=== PATIENT | female | born 1950 | race Caucasian/White ===

== ENCOUNTER 2016-04-15 16:39 | Inpatient (IN) | payer OTHER ==
[~2016-04-15] VITALS: Ht 167.6 cm; Wt 63.2 kg
[2016-04-15] VITALS (15 sets, daily range): BP systolic 104–114; BP diastolic 57–69; PULSE 70–78; RESP 14–17; Ht 167.6 cm; Wt 63.2 kg
[~2016-04-15 16:39] MED LIST: ETOMIDATE 20 MG INJ ONE; SUCCINYLCHOLINE CHLORIDE 100 MG/5 ML SYG IV ONE
[2016-04-15] MEDS ORDERED: CEFEPIME 2GM/50 ML (PMX) 50 ML IVPB STA (16:42)
[2016-04-15] MEDS ORDERED: SOD CHLORIDE 0.9% 1,000 ML IV STA ×2 (16:43)
[2016-04-15] MEDS ORDERED: ETOMIDATE 20 MG INJ IV STA (16:56)
[2016-04-15] MEDS ORDERED: PROPOFOL 100 ML IV STA (16:56)
[2016-04-15] MEDS ORDERED: SUCCINYLCHOLINE CHLORIDE 100 MG/5 ML SYG IV STA (16:56)
[2016-04-15] MEDS ORDERED: PROPOFOL 100 ML ONE (16:57)
[2016-04-15] MEDS ORDERED: VANCOMYCIN 1 GM (PMX) 250 ML IVPB ONE (17:00)
[2016-04-15] MEDS ORDERED: LORAZEPAM 2 MG INJ IM ONE (17:00)
[2016-04-15] MEDS ORDERED: HALOPERIDOL 5 MG INJ IM ONE (17:00)
[2016-04-15] MEDS ORDERED: HYDROmorphONE 1 MG/ML SYG IV ONE (17:00)
[2016-04-15 17:06] LABS: ADD SCAN DIFF NO
[2016-04-15 17:09] LABS: HEMATOCRIT 28.4 % (37.0-47.0); HEMOGLOBIN 9.1 g/dl (12.0-16.0); MEAN CORPUSCULAR HEMOGLOBIN 24.2 pg (29.0-33.0); MEAN CORPUSCULAR VOLUME 75.5 fl (82.0-101.0); MEAN PLATELET VOLUME 9.6 fl (7.4-10.4); PLATELET COUNT 216 10^3/UL (140-415); RED BLOOD COUNT 3.76 10^6/ul (4.20-5.40); RED CELL DISTRIBUTION WIDTH 16.3 % (11.5-14.5); WHITE BLOOD COUNT 3.1 10^3/ul (4.8-10.8)
[2016-04-15 17:18] LABS: ALBUMIN 3.7 g/dl (3.3-4.9); CHLORIDE 102 mmol/L (97-110); INR 1.09; POTASSIUM 4.9 mmol/L (3.5-5.1); PROTIME 14.1 Sec (12.2-14.2); PT RATIO 1.1; SODIUM 141 mmol/L (135-144)
[2016-04-15 17:19] LABS: PARTIAL THROMBOPLASTIN TIME 27.6 Sec (25.0-35.0)
[2016-04-15 17:20] LABS: ANION GAP 22 (8-16); ASPARTATE AMINO TRANSFERASE 34 IU/L (15-46); CARBON DIOXIDE 22 mmol/L (21-31); CREATININE 1.58 mg/dl (0.44-1.00)
[2016-04-15 17:21] LABS: ALANINE AMINOTRANSFERASE 35 IU/L (13-69); ALBUMIN/GLOBULIN RATIO 1.42; ALKALINE PHOSPHATASE 87 IU/L (42-121); BLOOD UREA NITROGEN 26 mg/dl (7-20); CALCIUM 9.7 mg/dl (8.4-10.2); GLUCOSE 230 mg/dl (70-220); TOTAL PROTEIN 6.3 g/dl (6.1-8.1)
[2016-04-15 17:22] LABS: ACETAMINOPHEN < 10.0 ug/ml (10.0-30.0); ETHANOL < 10.0 mg/dl; SALICYLATE < 1.0 mg/dl (5.0-30.0)
[2016-04-15] MEDS ORDERED: ACETAMINOPHEN 650 MG SUPP PR ONE (17:30)
--- NOTE | 2016-04-15 17:32 | RADRPT ---
PROCEDURE: Chest x-ray CLINICAL INDICATION: Shortness of breath TECHNIQUE: Chest single view COMPARISON: None FINDINGS: Endotracheal tube terminates 3 cm above the alayna. Heart is normal in size. Pulmonary vessels are normal in caliber. There is mild perihilar and lower lobe atelectasis. No confluent pneumonia see n. Costophrenic angles are sharp. IMPRESSION: 1. Endotracheal tube terminates 3 cm above the alayna. 2. Low lung volumes with perihilar and lower lobe atelectasis RPTAT: HH .Ede Michelle MD, Date Time Electronically viewed and signed by .Ede Michelle MD, on 04/15/2016 17:32 .W/
[2016-04-15 17:34] LABS: AADO2 Arterial 419.3 mmHg (7.0-24.0); Allen Test ACCEPTAB; Arterial Base Excess -2.7 mmol/L (-3.0-3); Arterial COHb 0.3 % (0.0-3.0); Arterial Fraction of Oxyhgb 98.3 % (93.0-99.0); Arterial HCO3 21.1 mmol/L (22.0-26.0); Arterial MetHb 0.2 % (0.0-1.5); Arterial Total Hemglobin 10.9 g/dl (12.0-18.0); MODE VENT - AC
[2016-04-15 17:44] LABS: TROPONIN-I < 0.012 ng/ml (0.00-0.12)
--- NOTE | 2016-04-15 18:17 | ERA ---
ER Documentation Chief Complaint Date/Time DATE: 04/15/16 TIME: 18:10 Chief Complaint ALTERED SINCE HPI Patient is an approximately 61-year-old female who presents with altered mental status. Please note the history and physical exam is limited secondary to patient's altered mental status at this time. She was brought in by ambulance. She was found rolling in the bushes by paramedics. She is hot to the touch. I cannot obtain history otherwise. She has no identification on her. ROS All systems reviewed and are negative except as per history of present illness. Medications Home Meds Unable to Obtain Active Prescriptions or Reported Meds Allergies Allergies: Coded Allergies: No Known Allergy (Unverified , 04/15/16) PMhx/Soc Unable to obtain Medical and Surgical Hx: Unable to obtain Hx Alcohol Use: No Hx Substance Use: No Hx Tobacco Use: No Smoking Status: Never smoker FmHx Unable to obtain Physical Exam Vitals Vital Signs Date Time Temp Pulse Resp B/P Pulse Ox O2 Delivery O2 Flow Rate FiO2 04/15/16 17:00 94 22 100 100 04/15/16 16:50 Bag Valve Mask 04/15/16 16:47 99.9 99 26 92/52 97 Physical Exam Const: Altered Head: Atraumatic Eyes: Normal Conjunctiva ENT: Normal External Ears, Nose and Mouth. Neck: Full range of motion..~ No meningismus. Resp: Clear to auscultation bilaterally Cardio: Regular rate and rhythm, no murmurs Abd: Soft, non tender, non distended. Normal bowel sounds Skin: Pale Back: No midline or flank tenderness Ext: No cyanosis, or edema Neur: Awake but encephalopathic, not following commands, not speaking, rolling on the bed Result Diagram: 04/15/16 1650 04/15/16 1650 Results 24 hrs Laboratory Tests Test 04/15/16 16:50 04/15/16 16:56 Acetaminophen Level < 10.0ug/ml Activated Partial Thromboplast Time 27.6Sec Alanine Aminotransferase (ALT/SGPT) 35IU/L Albumin 3.7g/dl Albumin/Globulin Ratio 1.42 Alkaline Phosphatase 87IU/L Anion Gap 22 Aspartate Amino Transf (AST/SGOT) 34IU/L Basophils # 10^3/ul Basophils % % Blood Urea Nitrogen 26mg/dl Calcium Level 9.7mg/dl Carbon Dioxide Level 22mmol/L Chloride Level 102mmol/L Creatinine 1.58mg/dl Direct Bilirubin 0.00mg/dl Eosinophils # 10^3/ul Eosinophils % % Ethyl Alcohol Level < 10.0mg/dl Globulin 2.60g/dl Glucose Level 230mg/dl Hematocrit 28.4% Hemoglobin 9.1g/dl INR International Normalized Ratio 1.09 Indirect Bilirubin 0.0mg/dl Lactic Acid Level 2.9mmol/L Lymphocytes # 10^3/ul Lymphocytes % % Mean Corpuscular Hemoglobin 24.2pg Mean Corpuscular Hemoglobin Concent 32.0g/dl Mean Corpuscular Volume 75.5fl Mean Platelet Volume 9.6fl Monocytes # 10^3/ul Monocytes % % Neutrophils # 10^3/ul Neutrophils % % Nucleated Red Blood Cells # 10^3/ul Nucleated Red Blood Cells % /100WBC Platelet Count 29978^3/UL Potassium Level 4.9mmol/L Prothrombin Time 14.1Sec Prothrombin Time Ratio 1.1 Red Blood Count 3.7610^6/ul Red Cell Distribution Width 16.3% Salicylates Level < 1.0mg/dl Sodium Level 141mmol/L Total Bilirubin 0.0mg/dl Total Protein 6.3g/dl Troponin I < 0.012ng/ml White Blood Count 3.110^3/ul Arterial Blood HCO3 21.1mmol/L Arterial Blood Base Excess -2.7mmol/L Arterial Blood Oxygen Saturation 98.8mmHG Charles Test ACCEPTAB Arterial Blood Gas Puncture Site Right Radial Arterial Blood Carboxyhemoglobin 0.3% Arterial Blood Date Drawn 04/15/2016 5:20:54 PM Arterial Blood Methemoglobin 0.2% Arterial Blood pCO2 (Temp correct) 35.0mmhg Arterial Blood pH (Temp corrected) 7.403 Arterial Blood pO2 (Temp corrected) 256.0mmHG Blood Gas A-a O2 Differential 419.3mmHg Blood Gas Actual Respiration Rate 22 Blood Gas Inspiratory Pressure 19.0 Blood Gas Low PEEP Setting 5.0cmH2O Blood Gas Modality VENT - AC Blood Gas Notified Time 04/15/2016 5:34:05 PM Blood Gas Notified Dipti LANIER Blood Gas Respiration Rate 14.0 Blood Gas Specimen Source Blood arterial Blood Gas Temperature 38.0C Blood Gas Tidal Volume 450.0mL FiO2 100.0% Oxyhemoglobin Percent 98.3% Total Hemoglobin 10.9g/dl Current Medications Medications (Trade) Dose Ordered Sig/Yariel Route PRN Reason Start Time Stop Time Status Last Admin Dose Admin Cefepime HCl 50 ml @ 100 mls/hr ONCE STAT IVPB 04/15/16 16:42 04/15/16 17:16 DC 04/15/16 17:24 Vancomycin HCl (Vancocin) 250 ml @ 125 mls/hr ONCE ONCE IVPB 04/15/16 17:00 04/15/16 18:59 04/15/16 18:02 Haloperidol (Haldol) 5 mg ONCE ONCE IM 04/15/16 17:00 04/15/16 17:16 DC 04/15/16 16:56 Lorazepam 2 mg 2 mg ONCE ONCE IM 04/15/16 17:00 04/15/16 17:16 DC 04/15/16 16:56 Sodium Chloride 1,000 ml @ 1,000 mls/hr Q1H STAT IV 04/15/16 16:43 04/15/16 17:42 DC 04/15/16 17:25 Sodium Chloride (NS) 1,000 ml @ 1,000 mls/hr Q1H STAT IV 04/15/16 16:43 04/15/16 17:42 DC 04/15/16 17:28 Succinylcholine Chloride (Anectine Syringe) 150 mg ONCE STAT IV 04/15/16 16:56 04/15/16 16:58 DC 04/15/16 17:26 Etomidate (Amidate) 20 mg ONCE STAT IV 04/15/16 16:56 04/15/16 16:59 DC 04/15/16 17:26 Hydromorphone HCl 1 mg 1 mg ONCE ONCE IV 04/15/16 17:00 04/15/16 17:16 DC 04/15/16 17:58 Propofol 100 ml @ 1.92 mls/hr ONCE STAT IV 04/15/16 16:56 04/17/16 21:00 04/15/16 17:26 Propofol (Diprivan) 100 ml @ ud STK-MED ONCE .ROUTE 04/15/16 16:57 04/15/16 16:58 DC Acetaminophen (Tylenol Supp) 650 mg ONCE ONCE HI 04/15/16 17:30 04/15/16 17:31 DC 04/15/16 17:51 Procedures/MDM CT brain pending at this time EKG read by me: Rate/Rhythm: Regular rate and rhythm at a normal rate Intervals: Normal Impression: No evidence of ischemia or arrhythmia Endotracheal Intubation by me: Pre assessment performed. Pre-oxygenation performed with 100% oxygen RSI: Performed w/o complication or hypoxic events. Medications as ordered. Blade: MAC 3 Glidescope ET Tube: 7.0 cm Depth: 23 cm at the lip Intubation confirmed by colorimetric CO2, equal breath sounds, quiet over the stomach. Chest X-ray 1V Interpreted by me: 3 cm above the alayna ET tube. Normal soft tissue, No pneumothorax. Admit MDM: Patient's infectious symptoms have not stabilized and the patient is at risk of rapid decompensation. The patient will be admitted for careful hydration, antibiotic therapy, and infectious source control. Severe Sepsis criteria: Infectious source: Unclear source at this time End organ damage indicated by: Lactate greater than 2 Sepsis Management: Time of recognition of sepsis: 16:50 Within 3 hours of recognition: Blood cultures x 2 before broad-spectrum antibiotics: Yes 30 ml/kg NS bolus Completed Initial lactate 2.9 Repeat lactate pending Time of recognition of septic shock: No septic shock Septic Shock Assessment: Any lactic acid > 4.0 No Persistent hypotension (SBP < 90 or 40 mmHg drop, MAP < 65) despite 30 mL/kg IV fluid bolus No Volume Re-assessment for Septic Shock (post 30 ml/kg bolus): No septic shock at this time Persistent Hypotension Treatment: Comfort care No Central line Not Required Vasopressor started Not required I considered further perfusion assessment with CVP measurement, SCVO2, bedside ultrasound volume assessment, passive leg raise, trial of further fluid bolus. And proceeded with 30 ml/kg fluid bolus of NSS, broad spectrum antibiotics, and admission. I am also concerned for anticholinergic overdose as the patient is febrile, dry, altered, and has dilated pupils which would be consistent with an anticholinergic overdose. She needs to be intubated for airway protection. She will be admitted to the care of the panel team to the intensive care unit. Accepting Care Team Current data and ongoing care discussed. Admitting Physician: Dr. Hahn from the panel team as we do not know any information about this patient and do not know if she has been here before or what her insurance status refund specialist(s): None Outstanding Data: Culture results and repeat lactic acid Critical Care: Critical care time 45 minutes excluding all billable procedures Emergent fluid management while maintaining close respiratory support. Provision of immediate and broad-spectrum antibiotic therapy. Simultaneous assessment for possible sources in order to direct targeted therapy. Consideration for invasive and chemical support to prevent cardiopulmonary collapse. Departure Diagnosis: Primary Impression: Anticholinergic drug overdose Qualified Code: T44.3X4A - Anticholinergic drug overdose, undetermined intent , initial encounter Additional Impressions: Altered level of consciousness Severe sepsis Respiratory failure Qualified Code: J96.00 - Acute respiratory failure, unspecified whether with hypoxia or hypercapnia Condition: Critical JESSI MARIE MD Apr 15, 2016 18:17
[2016-04-15] MEDS: SOD CHLORIDE 0.9% 1,000 ML IV SCH ×3 (18:24→21:06)
[2016-04-15] MEDS ORDERED: DOCUSATE SODIUM 100 MG CAP PO PRN (18:30)
[2016-04-15] MEDS ORDERED: LORAZEPAM 2 MG INJ IV PRN (18:30)
[2016-04-15] MEDS ORDERED: hydrALAzine 20 MG INJ IV PRN (18:30)
[2016-04-15] MEDS ORDERED: HYDROCODONE/APAP (5/325) TAB PO PRN (18:30)
[2016-04-15] MEDS ORDERED: NA PHOSPHATE/BIPHOS 133 ML ENEMA PR PRN (18:30)
[2016-04-15] MEDS ORDERED: ACETAMINOPHEN 325 MG TAB PO PRN (18:30)
[2016-04-15] MEDS ORDERED: NACL 0.9% 3 ML SYG IV SCH (18:30)
[2016-04-15] MEDS ORDERED: NITROGLYCERIN (SL) 0.4 MG TAB SL PRN (18:30)
[2016-04-15] MEDS ORDERED: ALBUTEROL/IPRATROPIUM (NEB) 3 ML AMP HHN PRN (18:30)
[2016-04-15] MEDS ORDERED: NORepinephrine 8MG/250 ML (PMX 250 ML IV SCH (18:30)
[2016-04-15] MEDS ORDERED: VANCOMYCIN IV PER PHARMACY XX SCH (18:30)
[2016-04-15] MEDS ORDERED: ONDANSETRON 4 MG INJ IV PRN (18:30)
[2016-04-15] MEDS ORDERED: MAGNESIUM HYDROXIDE 30ML CUP PO PRN (18:30)
[2016-04-15 18:46] LABS: ADD UMIC NO; URINE BILIRUBIN (Dip) NEGATIVE (NEGATIVE); URINE BLOOD (Dip) NEGATIVE (NEGATIVE); URINE COLOR LT. YELLOW (YELLOW); URINE GLUCOSE (Dip) NEGATIVE (NEGATIVE); URINE KETONES (Dip) NEGATIVE (NEGATIVE); URINE LEUKOCYTE ESTERASE (Dip) NEGATIVE (NEGATIVE); URINE NITRITE (Dip) NEGATIVE (NEGATIVE); URINE TOTAL PROTEIN (Dip) NEGATIVE (NEGATIVE); URINE UROBILINOGEN (Dip) 0.2 E.U./dL (0.1-1.0)
[2016-04-15 18:58] LABS: CANNABINOIDS Negative (NEGATIVE)
[2016-04-15 18:59] LABS: OPIATES Positive (NEGATIVE)
--- NOTE | 2016-04-15 19:00 | RADRPT ---
PROCEDURE: CT Brain without. CLINICAL INDICATION: Possible sepsis. TECHNIQUE: A CT of the brain was performed on multidetector high-resolution CT scanner utilizing a xial sections from the skull base through the vertex without contrast. The scan was reviewed in sof t tissue brain and high frequency resolution bone algorithm windows. Images were reviewed on a high -resolution PACS workstation. One or more the following does reduction techniques were utilized: Aut omated exposure control, adjustment of the mA/ or kV according to patient's size, or use of iterativ e reconstruction technique. The exam CTDI = 39.46 mGy and the DLP = 554.95 mGy-cm. COMPARISON: None available. FINDINGS: The ventricles and sulci are mildly prominent indicative of volume loss. There is mild cerebellar vo lume loss. There is no intracranial hemorrhage, mass effect or midline shift. No abnormal intra-ax ial or extra-axial fluid collections are seen. The jacobo/white matter differentiation is preserved. There are mild scattered foci of hypoattenuation in the white matter, which are nonspecific in etiol ogy but likely reflect chronic small vessel ischemic changes. There are mild intracranial vascular calcifications consistent with atherosclerosis. The visualized paranasal sinuses shows mild mucosal thickening of right ethmoid air cells and right sphenoid sinus. The mastoid air cells are essentiall y clear. IMPRESSION: 1. No acute intracranial hemorrhage, transcortical infarction or mass effect. 2. Mild intracranial atherosclerosis and chronic small vessel ischemic changes. 3. Mild generalized cerebral volume loss. 4. Mild scattered paranasal sinus disease. RPTAT: PP .Winifred Elder MD, MD Date Time Electronically viewed and signed by .Winifred Elder MD, MD on 04/15/2016 19:00 .N/
[2016-04-15 19:30] LABS: LYMPHOCYTES # 1.6 10^3/ul (0.8-2.9); MONOCYTE # 0.2 10^3/ul (0.3-0.9); NEUTROPHIL # 1.2 10^3/ul (1.6-7.5)
[2016-04-15 19:33] LABS: BARBITURATES Negative (NEGATIVE); BENZODIAZEPINES Negative (NEGATIVE); COCAINE Positive (NEGATIVE)
--- NOTE | 2016-04-15 20:15 | HP ---
DATE OF ADMISSION: 04/15/2016 CHIEF COMPLAINT: This is a 61-year-old female brought in by ambulance with altered mental status __ __ overdose. HISTORY OF PRESENT ILLNESS: A 61-year-old female, unknown past medical history, who apparently, per ER records, had altered mental status. Apparently, she was found rolling in the bushes by paramedi cs earlier today. She was found to be hot to the touch. A full review of systems cannot be obtain ed, because the patient ____ intubated as well. She had no identification on her reported to the ER documentation, but when she came in, she was found initially with a temperature of 106.0. There wa s concern of possible anticholinergic overdose, patient had to be intubated and is now on mechanical ventilation. She had an elevated lactic acid as well of 2.9 and she had some renal insufficiency a s well. PAST MEDICAL HISTORY: As stated above. ALLERGIES: APPARENTLY, NO KNOWN DRUG ALLERGIES. HOME MEDICINES: Unknown. FAMILY HISTORY: Unknown. PAST SURGICAL HISTORY: Unknown. SOCIAL HISTORY: Unknown. PHYSICAL EXAMINATION VITAL SIGNS: Today, T-max 106.0, presently temperature is 99.9, pulse 94 to 99, respirations 20 to 26, blood pressure 92/52, saturating at 100% on mechanical ventilation. GENERAL: The patient is lying in bed, intubated and sedated. HEENT: Unable to fully assess. NECK: Supple; no thyromegaly. LUNGS: Clear to auscultation bilaterally. CARDIOVASCULAR: S1, S2 heard. No rubs or gallops. ABDOMEN: Soft, nontender, nondistended. Normal bowel sounds. No rebound or guarding. MUSCULOSKELETAL: No lower extremity edema bilaterally. SKIN: Slightly pale, but does not appear hot to the touch; normal temperature. NEUROLOGIC: Unable to fully assess because patient is intubated. LABORATORIES: WBC 3.1, hemoglobin 9.1, hematocrit 28.4, platelets 216. Sodium 141, potassium 4.9, chloride 102, CO2 22, BUN 26, creatinine 1.58, glucose 230. Lactic acid 2.9. LFTs are normal. Tro ponin is negative x1. UA shows negative nitrites, negative leukocyte esterase, positive salicylate. Serum salicylate levels are less than 1. Tylenol levels in the blood are less than 10. Blood alc ohol level is less than 10, as well, so they all appear to be normal. ABG showed pH of 7.40, pCO2 o f 35, PaO2 of 256, bicarbonate of 21.1 it looks like that was performed on oxygen supplementation. COMPUTED TOMOGRAPHY: Of head was performed that showed no acute intracranial hemorrhages, infarctio ns or mass effects. CHEST X-RAY: Performed that showed low lung volumes with perihilar lower lobe atelectasis. ASSESSMENT AND PLAN A 61-year-old female coming in with altered mental status, possible anticholinergic overdose: 1. Altered mental status; again, unknown source. Possible anticholinergic overdose. It is hard to test for that on blood test. For now, continue IV fluids and mechanical ventilation. Monitor for signs of change in mental status. Get pulmonary consult for vent and management. Check TSH, A1c an d lipid panel. Physostigmine is a consideration for anticholinergic intoxication; although, again, patient's temperature has come down to high-normal range, does not have any skin redness. So it is unclear if it would be helpful in this case giving physostigmine. In any event, we will continue to monitor her for now. Ativan p.r.n. for agitation, as well. 2. Gastrointestinal prophylaxis. We will put her on a H2 nelly. 3. Deep venous thrombosis prophylaxis. We will put her on SCDs for lactic acidosis, IV fluids and put her on broad spectrum antibiotics and follow up final culture results. UA appears to be negativ e thus far. Chest x-ray does not appear to be showing signs of any infiltrates or signs of infectio n. If patient's white blood cell count is low-normal, if this trend continues, consider using antib iotics; if worsens, consider an infectious disease consultation and deep venous thrombosis prophylax is she will be on SCDs. Dictated By: RAE RANDLE Conf#: [id number] DID#: [id number]
[2016-04-15] MEDS: FAMOTIDINE 20 MG INJ IV SCH (21:05)
[2016-04-16] VITALS (46 sets, daily range): BP systolic 109–157; BP diastolic 63–86; PULSE 61–77; RESP 13–22
[2016-04-16] MEDS: CEFEPIME 2GM/50 ML (PMX) 50 ML IVPB SCH ×3 (00:04→20:12)
[2016-04-16] MEDS: PROPOFOL 100 ML IV SCH ×6 (00:16→23:42)
[2016-04-16] MEDS: morphine 2 MG INJ IV PRN (04:51)
[2016-04-16 05:01] LABS: ADD SCAN DIFF NO
[2016-04-16 05:16] LABS: POTASSIUM 3.6 mmol/L (3.5-5.1)
[2016-04-16 05:18] LABS: CREATININE 1.07 mg/dl (0.44-1.00)
[2016-04-16 05:19] LABS: PHOSPHORUS 3.6 mg/dl (2.5-4.9)
[2016-04-16 05:20] LABS: CALCIUM 8.1 mg/dl (8.4-10.2); MAGNESIUM 1.5 mg/dl (1.7-2.5)
[2016-04-16 05:21] LABS: BASOPHILS % 0.9 % (0.0-2.0); EOSINOPHILS % 0.4 % (0.0-7.0); HEMATOCRIT 26.4 % (37.0-47.0); HEMOGLOBIN 8.1 g/dl (12.0-16.0); LYMPHOCYTES # 0.9 10^3/ul (0.8-2.9); MEAN CORPUSCULAR HGB CONC 30.7 g/dl (32.0-37.0); MEAN CORPUSCULAR VOLUME 78.1 fl (82.0-101.0); MEAN PLATELET VOLUME 9.7 fl (7.4-10.4); MONOCYTE # 0.4 10^3/ul (0.3-0.9); MONOCYTES % 8.9 % (0.0-11.0); NEUTROPHIL # 3.2 10^3/ul (1.6-7.5); NEUTROPHILS % 70.4 % (39.0-77.0); PLATELET COUNT 170 10^3/UL (140-415); RED BLOOD COUNT 3.38 10^6/ul (4.20-5.40); RED CELL DISTRIBUTION WIDTH 16.7 % (11.5-14.5); WHITE BLOOD COUNT 4.5 10^3/ul (4.8-10.8)
[2016-04-16] MEDS: SOD CHLORIDE 0.9% 1,000 ML IV SCH ×3 (06:12→23:00)
[2016-04-16] MEDS ORDERED: MAGNESIUM SULFATE 2 GM/50 ML 50 ML IVPB ONE (07:00)
[2016-04-16 07:23] LABS: CHOL/HDL RATIO 1.7 RATIO
[2016-04-16 08:05] LABS: THYROID STIMULATING HORMONE 1.77 MIU/L (0.465-4.680)
[2016-04-16] MEDS: FAMOTIDINE 20 MG INJ IV SCH ×2 (08:14→20:12)
[2016-04-16] MEDS: LORAZEPAM 2 MG INJ IV PRN (09:28)
--- NOTE | 2016-04-16 12:49 | PN ---
Date/Time of Note Date/Time of Note DATE: 04/16/16 TIME: 12:44 Assessment/Plan VTE Prophylaxis VTE Prophylaxis Intervention: SCD's Lines/Catheters [facility] Peripheral IV Urinary Cath still in place: Yes Reason Cath still needed: urinary retention Assessment/Plan Chief Complaint/Hosp Course ASSESSMENT AND PLAN: 61-year-old female coming in with altered mental status, possible anticholinergic overdose. 1. Altered mental status - again, unclear source. Possible anticholinergic overdose. It is hard to test for that on blood test. Physostigmine is a consideration for anticholinergic intoxication; although, again, patient's temperature came down to high-normal range shortly after, does not have any skin redness. - continue IV fluids and mechanical ventilation. - Monitor for signs of change in mental status. - f/u pulmonary consult for vent and management. - Ativan p.r.n. for agitation, as well. - f/u HIV, LA, CXR, ABG tests 2. Gastrointestinal prophylaxis - H2 nelly. 3. Deep venous thrombosis prophylaxis - SCDs 4. lactic acidosis - resolving. Blood cx + for gram + rods as well. UA appears to be negative thus far. Chest x-ray does not appear to be showing signs of any infiltrates or signs of infection. - continue IV fluids, broad spectrum antibiotics - follow up final culture results. - patient's white blood cell count is low-normal, if worsens, consider an infectious disease consultation Critical care time today = 40 min. Problems: Subjective 24 Hr Interval Summary Free Text/Dictation Pt still intubated, seen by pulm team. Exam/Review of Systems Vital Signs Vitals Vital Signs Date Time Temp Pulse Resp B/P Pulse Ox O2 Delivery O2 Flow Rate FiO2 04/16/16 12:00 64 04/16/16 11:15 16 100 35 04/16/16 11:00 113/64 Mechanical Ventilator 04/16/16 08:00 99.8 Intake and Output 04/15/16 04/15/16 04/16/16 14:59 22:59 06:59 Intake Total 244 ml 831 ml Output Total 400 ml 925 ml Balance -156 ml -94 ml Exam GENERAL: The patient is lying in bed, intubated and sedated. HEENT: Unable to fully assess. NECK: Supple; no thyromegaly. LUNGS: Clear to auscultation bilaterally. CARDIOVASCULAR: S1, S2 heard. No rubs or gallops. ABDOMEN: Soft, nontender, nondistended. Normal bowel sounds. No rebound or guarding. MUSCULOSKELETAL: No lower extremity edema bilaterally. SKIN: Slightly pale, but does not appear hot to the touch; normal temperature. NEUROLOGIC: Unable to fully assess because patient is intubated. Results Result Diagram: 04/16/16 0400 04/16/16 0400 Results 24 hrs Laboratory Tests Test 04/15/16 16:50 04/15/16 16:56 04/15/16 18:00 04/15/16 19:20 Acetaminophen Level < 10.0 L Activated Partial Thromboplast Time 27.6 Alanine Aminotransferase (ALT/SGPT) 35 Albumin 3.7 Albumin/Globulin Ratio 1.42 Alkaline Phosphatase 87 Anion Gap 22 H Aspartate Amino Transf (AST/SGOT) 34 Basophils # 0.0 Basophils % 1.0 Blood Urea Nitrogen 26 H Calcium Level 9.7 Carbon Dioxide Level 22 Chloride Level 102 Creatinine 1.58 H Direct Bilirubin 0.00 Eosinophils # Eosinophils % Ethyl Alcohol Level < 10.0 Free Thyroxine 1.15 Globulin 2.60 Glucose Level 230 H Hematocrit 28.4 L Hemoglobin 9.1 L INR International Normalized Ratio 1.09 Indirect Bilirubin 0.0 Lactate Dehydrogenase 672 H Lactic Acid Level 2.9 H 0.5 Lymphocytes # 1.6 Lymphocytes % 51.0 Mean Corpuscular Hemoglobin 24.2 L Mean Corpuscular Hemoglobin Concent 32.0 Mean Corpuscular Volume 75.5 L Mean Platelet Volume 9.6 Monocytes # 0.2 L Monocytes % 8.0 Neutrophils # 1.2 L Neutrophils % 38.0 L Nucleated Red Blood Cells # Nucleated Red Blood Cells % Platelet Count 216 Potassium Level 4.9 Prothrombin Time 14.1 Prothrombin Time Ratio 1.1 Reactive Lymphocytes % 2.0 Red Blood Count 3.76 L Red Cell Distribution Width 16.3 H Salicylates Level < 1.0 L Sodium Level 141 Total Bilirubin 0.0 L Total Protein 6.3 Troponin I < 0.012 White Blood Count 3.1 L Arterial Blood HCO3 21.1 L Arterial Blood Base Excess -2.7 Arterial Blood Oxygen Saturation 98.8 H Charles Test ACCEPTAB Arterial Blood Gas Puncture Site Right Radial Arterial Blood Carboxyhemoglobin 0.3 Arterial Blood Date Drawn 04/15/2016 5:20:54 PM Arterial Blood Methemoglobin 0.2 Arterial Blood pCO2 (Temp correct) 35.0 Arterial Blood pH (Temp corrected) 7.403 Arterial Blood pO2 (Temp corrected) 256.0 H Blood Gas A-a O2 Differential 419.3 H Blood Gas Actual Respiration Rate 22 Blood Gas Inspiratory Pressure 19.0 Blood Gas Low PEEP Setting 5.0 Blood Gas Modality VENT - AC Blood Gas Notified Time 04/15/2016 5:34:05 PM Blood Gas Notified Whom DAKSHA RT Blood Gas Respiration Rate 14.0 Blood Gas Specimen Source Blood arterial Blood Gas Temperature 38.0 Blood Gas Tidal Volume 450.0 FiO2 100.0 Oxyhemoglobin Percent 98.3 Total Hemoglobin 10.9 L Urine Amphetamines Screen Negative Urine Barbiturates Negative Urine Benzodiazepines Screen Negative Urine Bilirubin NEGATIVE Urine Cannabinoids Negative Urine Clarity CLEAR Urine Cocaine Screen Positive Urine Color LT. YELLOW Urine Glucose NEGATIVE Urine Hemoglobin NEGATIVE Urine Ketones NEGATIVE Urine Leukocyte Esterase NEGATIVE Urine Nitrite NEGATIVE Urine Opiates Screen Positive Urine Specific [place] 1.015 Urine Total Protein NEGATIVE Urine Urobilinogen 0.2 E.U./dL Urine pH 6.5 Test 04/15/16 21:40 04/16/16 04:00 04/16/16 10:55 Lactic Acid Level < 0.5 L 1.0 0.7 Anion Gap 14 # Basophils # 0.0 Basophils % 0.9 Blood Urea Nitrogen 19 Calcium Level 8.1 L Carbon Dioxide Level 23 Chloride Level 108 Cholesterol Level 86 L Cholesterol/HDL Ratio 1.7 Creatinine 1.07 H Eosinophils # 0.0 Eosinophils % 0.4 Glucose Level 94 # HDL Cholesterol 50 Hematocrit 26.4 L Hemoglobin 8.1 L Hemoglobin A1c 6.5 H LDL Cholesterol, Calculated 20 Lymphocytes # 0.9 Lymphocytes % 19.0 Magnesium Level 1.5 L Mean Corpuscular Hemoglobin 24.0 L Mean Corpuscular Hemoglobin Concent 30.7 L Mean Corpuscular Volume 78.1 L Mean Platelet Volume 9.7 Monocytes # 0.4 Monocytes % 8.9 Neutrophils # 3.2 Neutrophils % 70.4 Nucleated Red Blood Cells # 0.0 Nucleated Red Blood Cells % 0.0 Phosphorus Level 3.6 Platelet Count 170 # Potassium Level 3.6 Red Blood Count 3.38 L Red Cell Distribution Width 16.7 H Sodium Level 141 Thyroid Stimulating Hormone (TSH) 1.770 Triglycerides Level 80 White Blood Count 4.5 #L Medications Medications Current Medications Ondansetron HCl (Zofran Inj) 4 mg Q6H PRN IV NAUSEA AND/OR VOMITING; Start 04/15 at 18:30 Acetaminophen (Tylenol Tab) 650 mg Q6H PRN PO PAIN LEVEL 1-3 OR FEVER; Start at 18:30 Acetaminophen/ Hydrocodone Bitart ([place] (5/325)) 1 tab Q6H PRN PO MODERATE PAIN LEVEL 4-6; Start 04/15/16 at 18:30 Morphine Sulfate (morphine) 2 mg Q4H PRN IV SEVERE PAIN LEVEL 7-10 Last administered on 04/16/16 04:51; Admin Dose 2 MG; Start 04/15/16 at 18:30 Docusate Sodium (Colace) 100 mg Q12H PRN PO CONSTIPATION; Start 04/15/16 at 18: 30 Magnesium Hydroxide (Milk Of Mag) 30 ml DAILY PRN PO CONSTIPATION; Start at 18:30 Sodium Biphosphate/ Sodium Phosphate (Fleet Enema) 133 ml DAILY PRN [place] CONSTIPATION; Start 04/15/16 at 18:30 Famotidine 20 mg 20 mg Q12 IV Last administered on 04/16/16 08:14; Admin Dose 20 MG; Start 04/15/16 at 21:00 Sodium Chloride (NS) 1,000 ml @ 100 mls/hr Q10H IV Last administered on 06:12; Admin Dose 100 MLS/HR; Start 04/15/16 at 18:24 Hydralazine HCl (Apresoline) 10 mg Q6H PRN IV ELEVATED BLOOD PRESSURE; Start at 18:30 Nitroglycerin (Nitroglycerin (Sl Tab) 0.4 Mg) 1 tab Q5M PRN SL ANGINA; Start at 18:30 Lorazepam 1 mg 1 mg Q1H PRN IV CONTROL WITHDRAWAL SYMPTOMS Last administered on 04/16/16 09:28; Admin Dose 1 MG; Start 04/15/16 at 19:30 Propofol 100 ml @ 1.896 mls/ hr Q12H IV Last administered on 04/16/16 09:28; Admin Dose 18.96 MLS/HR; Start 04/16/16 at 00:30 Cefepime HCl 50 ml @ 100 mls/hr Q12 IVPB ; Start 04/16/16 at 21:00 Vancomycin HCl/ Sodium Chloride (Vancocin/NS) 150 ml @ 75 mls/hr Q12H IVPB ; Start 04/16/16 at 13:00 Miscellaneous Information (*Rx Drug Level Order Reminder*) VANCO TROUGH @ 1, 200 ON... ONCE ONCE XX ; Start 04/17/16 at 12:00; Stop 04/17/16 at 12:01 RAE LOW Apr 16, 2016 12:49
--- NOTE | 2016-04-16 12:56 | CONS ---
DATE OF ADMISSION: 04/15/2016 DATE OF CONSULTATION: 04/16/2016 TYPE OF CONSULTATION: Pulmonary PRIMARY PHYSICIAN: Glenroy Hahn MD REASON FOR CONSULTATION: Vent-dependent respiratory failure. HISTORY OF PRESENT ILLNESS: Briefly, there is no history available other than what is present in [facility] medical records. Briefly, this is a 61-year-old female with unknown past medical history who was apparently found by paramedics after being found in the bushes. When she was brought into the emerg ency room, it was noted that she had a temperature of 106 and was altered, requiring intubation for airway protection. At that point, cooling measures were instituted. Given the concern for antichol inergic toxicity, I believe Poison Control was contacted and consideration for pyridostigmine was escobar pedersen. Currently, patient is sedated on propofol drip on mechanical ventilation. PAST MEDICAL HISTORY: Unknown. ALLERGIES: NO KNOWN DRUG ALLERGIES. MEDICATIONS: Unknown. FAMILY HISTORY: Unknown. SURGICAL HISTORY: Unknown. SOCIAL HISTORY: Unknown. REVIEW OF SYSTEMS: Unable to obtain. PHYSICAL EXAMINATION: VITAL SIGNS: Currently temperature is 100.5, heart rate 80s, respirations are 20, blood pressure 10 0/50, oxygen saturation 100% on 35% FIO2. GENERAL: Intubated, sedated, on mechanical ventilation. HEENT: Normocephalic, atraumatic. NECK: Supple, no thyromegaly, no jugular venous distention. CARDIOVASCULAR: Regular rate and rhythm, S1, S2. No murmurs, rubs, or gallops. LUNGS: Clear to auscultation. ABDOMEN: Soft, nontender, no hepatosplenomegaly. EXTREMITIES: No cyanosis, clubbing or edema. LABORATORY/DIAGNOSTIC DATA: WBC is 4.5, hemoglobin is 8.1, MCV is 78, platelets are 170. ABG: pH is 7.4, pCO2 is 35, pO2 is 256. BUN is 19, creatinine is 1.07. TSH is within normal limits. LDH i s 674. Lactate is 2.9. Head CT showed no acute intracranial process. Chest x-ray showed low lung volumes, mild perihilar s ubsegmental atelectasis. IMPRESSION: 1. Altered mental status possibly due to a toxic ingestion. Of note, the only positive on toxicolo gy screen was for opiates and for cocaine. Acute cocaine toxicity can present with altered mental s tatus and hyperthermia. However, this degree of hyperthermia is disproportionate. Thereby, anticho linergic toxicity is a concern. Her clinical exam is not suggestive of neuroleptic malignant syndro me or acute serotonergic syndrome. 2. Hyperthermia secondary to toxic ingestion, less likely viral. 3. Respiratory failure, intubated for airway protection. 4. Gram-positive harrison bacteremia. Although this can be a contaminate, one must also consider possib ilities that are unlikely such as Clostridium, Corynebacterium or Listeria. 5. Azotemia, improved, likely prerenal. RECOMMENDATIONS: 1. IV fluids. 2. Repeat blood cultures. 3. Vent support. 4. Continue to follow mental status and passive cooling measures. 5. Follow up blood cultures. 6. HIV testing to be performed. 7. DVT and GI prophylaxis. Dictated By: RAIZA MANNING MD NK/NTS Conf#: [id number] DID#: [id number] CC: ; SUSAN CODY MD;*EndCC*
[2016-04-16] MEDS: VANCOMYCIN 750 MG in SOD CHLORIDE 0.9% 150 ML IVPB SCH (13:14)
[2016-04-16] MEDS ORDERED: VANCOMYCIN 750 MG in SOD CHLORIDE 0.9% 150 ML IVPB SCH (15:30)
[2016-04-17] VITALS (34 sets, daily range): BP systolic 110–167; BP diastolic 73–128; PULSE 55–71; RESP 11–21
[2016-04-17] MEDS: LORAZEPAM 2 MG INJ IV PRN ×3 (00:36→21:24)
[2016-04-17] MEDS: VANCOMYCIN 750 MG in SOD CHLORIDE 0.9% 150 ML IVPB SCH ×2 (01:02→13:19)
[2016-04-17 04:59] LABS: ADD SCAN DIFF NO
[2016-04-17] MEDS: PROPOFOL 100 ML IV SCH ×4 (05:01→20:18)
[2016-04-17 05:05] LABS: AADO2 Arterial 72.8 mmHg (7.0-24.0); Allen Test ACCEPTAB; Arterial Base Excess -4.5 mmol/L (-3.0-3); Arterial COHb 0.3 % (0.0-3.0); Arterial Fraction of Oxyhgb 97.4 % (93.0-99.0); Arterial HCO3 20.7 mmol/L (22.0-26.0); Arterial MetHb 0.1 % (0.0-1.5); Arterial Total Hemglobin 9.7 g/dl (12.0-18.0); MODE VENT-AC
[2016-04-17 05:17] LABS: BASOPHIL # 0.1 10^3/ul (0.0-0.1); BASOPHILS % 1.2 % (0.0-2.0); EOSINOPHILS # 0.1 10^3/ul (0.0-0.5); EOSINOPHILS % 2.2 % (0.0-7.0); HEMATOCRIT 28.2 % (37.0-47.0); HEMOGLOBIN 8.7 g/dl (12.0-16.0); LYMPHOCYTES # 1.1 10^3/ul (0.8-2.9); LYMPHOCYTES % 21.6 % (15.0-51.0); MEAN CORPUSCULAR HEMOGLOBIN 24.1 pg (29.0-33.0); MEAN CORPUSCULAR HGB CONC 30.9 g/dl (32.0-37.0); MEAN CORPUSCULAR VOLUME 78.1 fl (82.0-101.0); MEAN PLATELET VOLUME 9.7 fl (7.4-10.4); MONOCYTE # 0.6 10^3/ul (0.3-0.9); NEUTROPHIL # 3.2 10^3/ul (1.6-7.5); NEUTROPHILS % 63.4 % (39.0-77.0); PLATELET COUNT 189 10^3/UL (140-415); RED BLOOD COUNT 3.61 10^6/ul (4.20-5.40); RED CELL DISTRIBUTION WIDTH 16.9 % (11.5-14.5)
[2016-04-17 05:27] LABS: POTASSIUM 3.3 mmol/L (3.5-5.1)
[2016-04-17 05:29] LABS: CREATININE 0.75 mg/dl (0.44-1.00)
[2016-04-17 05:30] LABS: CALCIUM 8.5 mg/dl (8.4-10.2)
--- NOTE | 2016-04-17 07:15 | PN ---
Date/Time of Note Date/Time of Note DATE: 04/17/16 TIME: 07:06 Assessment/Plan VTE Prophylaxis VTE Prophylaxis Intervention: SCD's Lines/Catheters IV Catheter Type (from Nrs): Saline Lock Urinary Cath still in place: Yes Reason Cath still needed: terminal illness/intractable pain Assessment/Plan Assessment/Plan 1. Altered mental status - pt came with temp of 106. Possible anticholinergic overdose. Utox was also positive for cocaine and opiates. now normothermic - continue IV fluids and mechanical ventilation. - Frequent Neuro checks - Cont cooling measures 2. Vent dependent Respiratory Failure: 2/2 altered mentation - Pulmonary managing 3. lactic acidosis - resolving. - Blood cx + for gram + rods as well. UA appears to be negative thus far. Chest x-ray does not appear to be showing signs of any infiltrates or signs of infection. - Cont abx and IVF 4. Normocytic Anemia: r/o Iron deficiency and GI Bleed - Order FOBT and Iron profile Gastrointestinal prophylaxis - H2 nelly. Deep venous thrombosis prophylaxis - SCDs Subjective 24 Hr Interval Summary Free Text/Dictation intubated and sedated. propofol was increased for agitation Exam/Review of Systems Vital Signs Vitals Vital Signs Date Time Temp Pulse Resp B/P Pulse Ox O2 Delivery O2 Flow Rate FiO2 04/17/16 07:00 61 21 110/73 99 Mechanical Ventilator 04/17/16 05:12 35 04/17/16 04:00 98.1 Intake and Output 04/16/16 04/16/16 04/17/16 15:00 23:00 07:00 Intake Total 1151.68 ml 901.68 ml 737.04 ml Output Total 880 ml 805 ml 600 ml Balance 271.68 ml 96.68 ml 137.04 ml Exam Constitutional: other (intubated) Head: atraumatic, normocephalic Eyes: PERRL Respiratory: clear to auscultation, normal air movement Cardiovascular: nl pulses, regular rate and rhythm Gastrointestinal: non-tender, soft Extremities: normal pulses Results Result Diagram: 04/17/16 0416 04/17/16 0416 Results 24 hrs Laboratory Tests Test 04/16/16 10:55 04/16/16 13:20 04/16/16 17:40 04/16/16 22:57 Lactic Acid Level 0.7 0.8 < 0.5 L < 0.5 L Creatine Kinase 392 H Test 04/17/16 04:16 04/17/16 05:00 Anion Gap 14 Basophils # 0.1 Basophils % 1.2 Blood Urea Nitrogen 10 # Calcium Level 8.5 Carbon Dioxide Level 21 Chloride Level 108 Creatinine 0.75 Eosinophils # 0.1 Eosinophils % 2.2 Glucose Level 91 Hematocrit 28.2 L Hemoglobin 8.7 L Lactic Acid Level 0.7 Lymphocytes # 1.1 Lymphocytes % 21.6 Mean Corpuscular Hemoglobin 24.1 L Mean Corpuscular Hemoglobin Concent 30.9 L Mean Corpuscular Volume 78.1 L Mean Platelet Volume 9.7 Monocytes # 0.6 Monocytes % 11.0 Neutrophils # 3.2 Neutrophils % 63.4 Nucleated Red Blood Cells # 0.0 Nucleated Red Blood Cells % 0.0 Platelet Count 189 Potassium Level 3.3 L Red Blood Count 3.61 L Red Cell Distribution Width 16.9 H Sodium Level 140 White Blood Count 5.0 Arterial Blood HCO3 20.7 L Arterial Blood Base Excess -4.5 L Arterial Blood Oxygen Saturation 97.8 Charles Test ACCEPTAB Arterial Blood Gas Puncture Site Right Radial Arterial Blood Carboxyhemoglobin 0.3 Arterial Blood Date Drawn 04/17/2016 4:35:37 AM Arterial Blood Methemoglobin 0.1 Arterial Blood pCO2 (Temp correct) 38.2 Arterial Blood pH (Temp corrected) 7.351 Arterial Blood pO2 (Temp corrected) 132.3 H Blood Gas A-a O2 Differential 72.8 H Blood Gas Actual Respiration Rate 15 Blood Gas Inspiratory Pressure 19.0 Blood Gas Low PEEP Setting 5.0 Blood Gas Modality VENT-AC Blood Gas Notified Time 04/17/2016 5:05:38 AM Blood Gas Notified Whom JMD Blood Gas Respiration Rate 14.0 Blood Gas Specimen Source Blood arterial Blood Gas Temperature 37.0 Blood Gas Tidal Volume 450.0 FiO2 35.0 Oxyhemoglobin Percent 97.4 Total Hemoglobin 9.7 L Medications Medications Current Medications Ondansetron HCl (Zofran Inj) 4 mg Q6H PRN IV NAUSEA AND/OR VOMITING; Start 04/15 at 18:30 Acetaminophen (Tylenol Tab) 650 mg Q6H PRN PO PAIN LEVEL 1-3 OR FEVER; Start at 18:30 Acetaminophen/ Hydrocodone Bitart ([place] (5/325)) 1 tab Q6H PRN PO MODERATE PAIN LEVEL 4-6; Start 04/15/16 at 18:30 Morphine Sulfate (morphine) 2 mg Q4H PRN IV SEVERE PAIN LEVEL 7-10 Last administered on 04/16/16 04:51; Admin Dose 2 MG; Start 04/15/16 at 18:30 Docusate Sodium (Colace) 100 mg Q12H PRN PO CONSTIPATION; Start 04/15/16 at 18: 30 Magnesium Hydroxide (Milk Of Mag) 30 ml DAILY PRN PO CONSTIPATION; Start at 18:30 Sodium Biphosphate/ Sodium Phosphate (Fleet Enema) 133 ml DAILY PRN [place] CONSTIPATION; Start 04/15/16 at 18:30 Famotidine 20 mg 20 mg Q12 IV Last administered on 04/16/16 20:12; Admin Dose 20 MG; Start 04/15/16 at 21:00 Sodium Chloride (NS) 1,000 ml @ 100 mls/hr Q10H IV Last administered on 23:00; Admin Dose 100 MLS/HR; Start 04/15/16 at 18:24 Hydralazine HCl (Apresoline) 10 mg Q6H PRN IV ELEVATED BLOOD PRESSURE; Start at 18:30 Nitroglycerin (Nitroglycerin (Sl Tab) 0.4 Mg) 1 tab Q5M PRN SL ANGINA; Start at 18:30 Lorazepam 1 mg 1 mg Q1H PRN IV CONTROL WITHDRAWAL SYMPTOMS Last administered on 04/17/16 03:16; Admin Dose 1 MG; Start 04/15/16 at 19:30 Propofol 100 ml @ 1.896 mls/ hr Q12H IV Last administered on 04/17/16 05:01; Admin Dose 18.96 MLS/HR; Start 04/16/16 at 00:30 Cefepime HCl 50 ml @ 100 mls/hr Q12 IVPB Last administered on 04/16/16 20:12; Admin Dose 100 MLS/HR; Start 04/16/16 at 21:00 Vancomycin HCl/ Sodium Chloride (Vancocin/NS) 150 ml @ 75 mls/hr Q12H IVPB Last administered on 04/17/16 01:02; Admin Dose 75 MLS/HR; Start 04/16/16 at 13: 00 Miscellaneous Information (*Rx Drug Level Order Reminder*) VANCO TROUGH @ 1, 200 ON... ONCE ONCE XX ; Start 04/17/16 at 12:00; Stop 04/17/16 at 12:01 AISHA ROSS MD Apr 17, 2016 07:15
[2016-04-17] MEDS ORDERED: POTASSIUM CHLORIDE 20 MEQ in SOD CHLORIDE 0.9% 100 ML IVPB ONE (07:30)
[2016-04-17] MEDS: FAMOTIDINE 20 MG INJ IV SCH ×2 (09:04→20:29)
--- NOTE | 2016-04-17 09:10 | RADRPT ---
PROCEDURE: XR Chest. CLINICAL INDICATION: Shortness of breath. TECHNIQUE: A single portable view of the chest was obtained. COMPARISON: 04/15/2016 FINDINGS: Interval placement of a nasogastric tube is seen in the gastric lumen, the tip of which is not visua lized. Endotracheal tube is essentially unchanged. The cardiomediastinal silhouette is within norm al limits. The lung volumes are low with bibasilar compressive atelectasis which has increased. The remaining lungs and pleural spaces are clear. The soft tissues and osseous structures are unremarka ble. IMPRESSION: 1. Interval placement of a nasogastric tube in the gastric lumen. 2. Low lung volumes with bibasilar compressive atelectasis which has increased. RPTAT: HPNM Physician Patrick Date Time Electronically viewed and signed by Adolph Barnett Physician on 04/17/2016 09:10 /
[2016-04-17] MEDS: SOD CHLORIDE 0.9% 1,000 ML IV SCH ×2 (10:24→13:23)
--- NOTE | 2016-04-17 11:03 | CONS ---
Date/Time of Note Date/Time of Note DATE: 04/17/16 TIME: 10:58 Consult Date/Type/Reason Admit Date/Time Apr 15, 2016 at 17:52 Initial Consult Date Type of Consultation: Pulm Subjective Agitated during sedation vacation; now back on propofol gtt. Objective Vital Signs Date Time Temp Pulse Resp B/P Pulse Ox O2 Delivery O2 Flow Rate FiO2 04/17/16 10:00 60 14 156/87 100 Mechanical Ventilator 04/17/16 08:00 97.3 04/17/16 08:00 30 Intake and Output 04/16/16 04/16/16 04/17/16 15:00 23:00 07:00 Intake Total 1151.68 ml 901.68 ml 974.96 ml Output Total 880 ml 805 ml 1000 ml Balance 271.68 ml 96.68 ml -25.04 ml HEENT: Normocephalic, atraumatic. NECK: Supple, no thyromegaly, no jugular venous distention. CARDIOVASCULAR: Regular rate and rhythm, S1, S2. No murmurs, rubs, or gallops. LUNGS: Clear to auscultation. ABDOMEN: Soft, nontender, no hepatosplenomegaly. EXTREMITIES: No cyanosis, clubbing or edema. NEURO: Neck supple no nuchal rigidity. Results/Medications Result Diagram: 04/17/16 0416 04/17/16 0416 Results 24 hrs Laboratory Tests Test 04/16/16 13:20 04/16/16 17:40 04/16/16 22:57 04/17/16 04:16 Creatine Kinase 392 H Lactic Acid Level 0.8 < 0.5 L < 0.5 L 0.7 Anion Gap 14 Basophils # 0.1 Basophils % 1.2 Blood Urea Nitrogen 10 # Calcium Level 8.5 Carbon Dioxide Level 21 Chloride Level 108 Creatinine 0.75 Eosinophils # 0.1 Eosinophils % 2.2 Glucose Level 91 Hematocrit 28.2 L Hemoglobin 8.7 L Lymphocytes # 1.1 Lymphocytes % 21.6 Mean Corpuscular Hemoglobin 24.1 L Mean Corpuscular Hemoglobin Concent 30.9 L Mean Corpuscular Volume 78.1 L Mean Platelet Volume 9.7 Monocytes # 0.6 Monocytes % 11.0 Neutrophils # 3.2 Neutrophils % 63.4 Nucleated Red Blood Cells # 0.0 Nucleated Red Blood Cells % 0.0 Platelet Count 189 Potassium Level 3.3 L Red Blood Count 3.61 L Red Cell Distribution Width 16.9 H Sodium Level 140 White Blood Count 5.0 Test 04/17/16 05:00 Arterial Blood HCO3 20.7 L Arterial Blood Base Excess -4.5 L Arterial Blood Oxygen Saturation 97.8 Charles Test ACCEPTAB Arterial Blood Gas Puncture Site Right Radial Arterial Blood Carboxyhemoglobin 0.3 Arterial Blood Date Drawn 04/17/2016 4:35:37 AM Arterial Blood Methemoglobin 0.1 Arterial Blood pCO2 (Temp correct) 38.2 Arterial Blood pH (Temp corrected) 7.351 Arterial Blood pO2 (Temp corrected) 132.3 H Blood Gas A-a O2 Differential 72.8 H Blood Gas Actual Respiration Rate 15 Blood Gas Inspiratory Pressure 19.0 Blood Gas Low PEEP Setting 5.0 Blood Gas Modality VENT-AC Blood Gas Notified Time 04/17/2016 5:05:38 AM Blood Gas Notified Whom JMD Blood Gas Respiration Rate 14.0 Blood Gas Specimen Source Blood arterial Blood Gas Temperature 37.0 Blood Gas Tidal Volume 450.0 FiO2 35.0 Oxyhemoglobin Percent 97.4 Total Hemoglobin 9.7 L Medications Current Medications Ondansetron HCl (Zofran Inj) 4 mg Q6H PRN IV NAUSEA AND/OR VOMITING; Start 04/15 at 18:30 Acetaminophen (Tylenol Tab) 650 mg Q6H PRN PO PAIN LEVEL 1-3 OR FEVER; Start at 18:30 Acetaminophen/ Hydrocodone Bitart ([place] (5/325)) 1 tab Q6H PRN PO MODERATE PAIN LEVEL 4-6; Start 04/15/16 at 18:30 Morphine Sulfate (morphine) 2 mg Q4H PRN IV SEVERE PAIN LEVEL 7-10 Last administered on 04/16/16 04:51; Admin Dose 2 MG; Start 04/15/16 at 18:30 Docusate Sodium (Colace) 100 mg Q12H PRN PO CONSTIPATION; Start 04/15/16 at 18: 30 Magnesium Hydroxide (Milk Of Mag) 30 ml DAILY PRN PO CONSTIPATION; Start at 18:30 Sodium Biphosphate/ Sodium Phosphate (Fleet Enema) 133 ml DAILY PRN [place] CONSTIPATION; Start 04/15/16 at 18:30 Famotidine 20 mg 20 mg Q12 IV Last administered on 04/17/16 09:04; Admin Dose 20 MG; Start 04/15/16 at 21:00 Sodium Chloride (NS) 1,000 ml @ 100 mls/hr Q10H IV Last administered on 23:00; Admin Dose 100 MLS/HR; Start 04/15/16 at 18:24 Hydralazine HCl (Apresoline) 10 mg Q6H PRN IV ELEVATED BLOOD PRESSURE; Start at 18:30 Nitroglycerin (Nitroglycerin (Sl Tab) 0.4 Mg) 1 tab Q5M PRN SL ANGINA; Start at 18:30 Lorazepam 1 mg 1 mg Q1H PRN IV CONTROL WITHDRAWAL SYMPTOMS Last administered on 04/17/16 03:16; Admin Dose 1 MG; Start 04/15/16 at 19:30 Propofol 100 ml @ 1.896 mls/ hr Q12H IV Last administered on 04/17/16 09:24; Admin Dose 18.96 MLS/HR; Start 04/16/16 at 00:30 Cefepime HCl 50 ml @ 100 mls/hr Q12 IVPB Last administered on 04/16/16 20:12; Admin Dose 100 MLS/HR; Start 04/16/16 at 21:00 Vancomycin HCl/ Sodium Chloride (Vancocin/NS) 150 ml @ 75 mls/hr Q12H IVPB Last administered on 04/17/16 01:02; Admin Dose 75 MLS/HR; Start 04/16/16 at 13: 00 Miscellaneous Information (*Rx Drug Level Order Reminder*) VANCO TROUGH @ 1, 200 ON... ONCE ONCE XX ; Start 04/17/16 at 12:00; Stop 04/17/16 at 12:01 Mupirocin (Bactroban) 1 applic BID TOP ; Start 04/17/16 at 21:00; Stop 04/27/16 at 20:59 Assessment/Plan Additional Assessment/Plan IMPRESSION: 1. Altered mental status possibly due to a toxic ingestion of cocaine. 2. Hyperthermia secondary to toxic ingestion. 3. Respiratory failure, intubated for airway protection. 4. Gram-positive harrison bacteremia. Although this can be a contaminate, one must also consider possibilities that are unlikely such as Clostridium, Corynebacterium or Listeria. 5. Azotemia, improved, likely prerenal. 6. Mildly elevated CK 7. Anemia RECOMMENDATIONS: 1. IV fluids. 2. Repeat blood cultures. 3. Vent support with plans to start precedex tonight for weaning extubation tomorrow 4. Abx--de-escalate pending cx's 5. Replete lytes 7. If mental status does not improve, may consider LP 35 min cc time; case d/w son . RAIZA MANNING MD Apr 17, 2016 11:02
--- NOTE | 2016-04-17 11:16 | EN ---
Date/Time of Note Date/Time of Note DATE: 04/17/16 TIME: 11:10 Event Note Medicine Medicine Event Note I spoke with her son who states that the patient has SLE with recurrent relapses and believes that she had a seizure prior to the presenting to the ED. Will obtain EEG and consider brain MRI. Will review lupus meds; consider resumption and obtain Neuro and Rheum consults. RAIZA MANNING MD Apr 17, 2016 11:16
[2016-04-17] MEDS: CEFEPIME 2GM/50 ML (PMX) 50 ML IVPB SCH ×2 (11:20→20:29)
[2016-04-17] MEDS ORDERED: IPRATROPIUM (NEB) 0.5 MG/2.5 ML AMP ONE (12:04)
[2016-04-17] MEDS ORDERED: ALBUTEROL 0.5% (NEB) 2.5 MG/0.5 ML AMP ONE (12:04)
--- NOTE | 2016-04-17 13:39 | RADRPT ---
Echocardiogram Report Patient Name: LUCILA MONSALVE Gender: Female Date: 1950 Study Date: 16-Apr-2016 [employer] Person: KERI Location: [facility] Height(Cm): 163 Weight(Kg): 64 BSA: 1.70 Ref. Physician: RAE LOW Quality: Technically Difficult Study Procedures: Transthoracic echocardiogram examination. Indications: Shortness of breath. 2D/M Mode Doppler Measurement Value Normal Range Measurement Value Normal Range LA Dimen 2D 4.3 2.3 - 4.0 cm AV Peak Nicolas 1.3 m/sec AV Peak PG 7.0 mmHg LVOT Peak Nicolas 1.1 m/sec MV E Peak Nicolas 0.8 m/sec MV A Peak Nicolas 0.7 m/sec MV E/A 1.1 MV Decel Time 150 msec MV Decel [place] 5 MV E/A 1.1 TR Peak Nicolas 2.5 m/sec TR Peak PG 25.5 mmHg RVSP 28.5 mmHg Findings Left Ventricle: Normal left ventricular cavity size. Normal left ventricular systolic function. Normal left ventricular diastolic function for age as measured by tissue Doppler/Mitral Doppler indices. Normal left ventricular wall thickness. The left ventricular ejection fraction is visually estimated at 65 %. Right Ventricle: Normal right ventricular size. Normal right ventricular systolic function. Left Atrium: There is moderate enlargement of left atrium. Right Atrium: The right atrium is normal in size and appearance. Mitral Valve: Normal appearance and function of the mitral valve with trace physiologic regurgitation. Aortic Valve: Normal appearance and function of the aortic valve. No hemodynamically significant aortic stenosis by Doppler. No aortic regurgitation. Tricuspid Valve: Normal appearance and function of the tricuspid valve with trace physiologic regurgitation. The estimated Peak RVSP is 29 mmHg. Pulmonic Valve: Normal pulmonic valve appearance and function without regurgitation, seen in subcostal images only. Pericardium: Normal pericardium with no significant pericardial effusion. Aorta: The aorta is not well visualized. IVC: Dilated inferior vena cava with no respiratory collapse. Pulmonary Artery: Normal pulmonary artery size imaged from subcostals only. Conclusions 1.Normal left ventricular cavity size. Normal left ventricular systolic function. Normal left ventricular wall thickness. The left ventricular ejection fraction is visually estimated at 65 %. 2.Normal right ventricular size. Normal right ventricular systolic function. 3.There is moderate enlargement of left atrium. 4.The right atrium is normal in size and appearance. 5.No significant valvular abnormalities seen. 6.Normal pericardium with no significant pericardial effusion. Electronically Signed By: Mehdi Manuel 17-Apr-2016 13:38:47 -0800 Patient Name: LUCILA MONSALVE Study Date: 16-Apr-2016 [id number]
[2016-04-17] MEDS ORDERED: HYDROXYCHLOROQUINE PO (15:57)
[2016-04-17] MEDS ORDERED: BUPR150T18 PO (15:57)
[2016-04-17] MEDS ORDERED: HYDR-2458 PO (15:57)
[2016-04-17] MEDS ORDERED: TRAZ100T15 PO (15:57)
[2016-04-17] MEDS ORDERED: HYDR-3012 PO (15:57)
[2016-04-17] MEDS ORDERED: FLONASE NASAL (15:57)
[2016-04-17] MEDS ORDERED: TRAM50TA2 PO (15:57)
[2016-04-17] MEDS ORDERED: COLACE PO (15:57)
[2016-04-17] MEDS ORDERED: PARO40TA79 PO (15:57)
[2016-04-17] MEDS ORDERED: NEXIUM PO (15:57)
[2016-04-17] MEDS ORDERED: AMIT50TA3 PO (15:57)
[2016-04-17] MEDS: MUPIROCIN 2% 22 GM OINT TOP SCH (20:29)
--- NOTE | 2016-04-17 23:04 | CONS ---
DATE OF ADMISSION: 04/15/2016 DATE OF CONSULTATION: REFERRING PHYSICIAN: Dr. Low. Thank you for asking me to see the patient with you. HISTORY OF PRESENT ILLNESS: The patient is a 66-year-old lady with acute onset of loss of conscious ness. The patient found on the street in front of [facility]. The patient transferred to [facility] for more evaluation and treatment in which they found the patient had a p ositive for cocaine and positive for morphine, in which EEG was ordered. CURRENT MEDICATIONS: Which includes: 1. Pepcid 20 mg once a day. 2. Lorazepam 1 mg every hour as needed. 3. Zofran 4 mg every 6 hours as needed. 4. Tylenol 650 mg once a day as needed. 5. Cefepime every 12 hours piggyback. 6. Vancomycin 750 mg every 12 hours. 7. [employer] ____ mg once a day. 8. Morphine sulfate 2 mg every 4 hours as needed. 9. Colace 100 mg twice a day as needed. PHYSICAL EXAMINATION: GENERAL: On exam today, the patient is sleepy, does not follow any commands; however, she is respon ding for painful stimuli by grimaces and localization. Moving both upper and lower extremities. CRANIAL NERVES: Cranial nerve II: Pupils equal on both sides, reactive to light. Cranial nerves I II, IV, and : Extraocular muscles intact. Cranial nerve V: Equal sensation to face. Cranial ne rve VII: Symmetrical face. Cranial nerve VIII: Decreased hearing bilaterally. Cranial nerve IX, X: ____. Cranial nerve XI: Elevates shoulder 5/5. Cranial nerve XII: With straight tongue. MOTOR: Moving both upper and lower extremity for painful stimuli. SENSATION, COORDINATION, AND GAIT: Could not assess. HEART: Regular rate and rhythm. LUNGS: Equal breath sounds. ABDOMEN: Soft, relaxed, nondistended. No tenderness. ASSESSMENT AND PLAN: 1. The patient is a 66-year-old lady with acute encephalopathy. 2. Possibility of underlying overdose, which the patient was intubated for airway protection. 3. Electroencephalogram done. Showed mild slowing. No epileptiform discharge or seizure activity recorded. Keep the patient under aspiration precaution for now and deep venous thrombosis prophylax is. 4. Decreased mini-mental status secondary to all of the above. Again, thank you for asking me to see the patient with you. Dictated By: RAIZA HUFFMAN/VÍCTOR Conf#: [id number] DID#: [id number] CC: RAE LOW;*EndCC*
[2016-04-18] VITALS (39 sets, daily range): BP systolic 113–179; BP diastolic 70–128; PULSE 58–84; RESP 13–25
[2016-04-18] MEDS ORDERED: DEXMEDETOMIDINE HCL 200 MCG in SOD CHLORIDE 0.9% 48 ML IV SCH ×2
[2016-04-18] MEDS: hydrALAzine 20 MG INJ IV PRN ×2 (00:47→12:34)
[2016-04-18] MEDS: LORAZEPAM 2 MG INJ IV PRN ×6 (00:47→18:36)
[2016-04-18] MEDS: SOD CHLORIDE 0.9% 1,000 ML IV SCH ×3 (01:01→16:29)
[2016-04-18] MEDS: VANCOMYCIN 750 MG in SOD CHLORIDE 0.9% 150 ML IVPB SCH (01:02)
[2016-04-18] MEDS: PROPOFOL 100 ML IV SCH ×5 (01:38→23:01)
[2016-04-18 04:46] LABS: AADO2 Arterial 67.8 mmHg (7.0-24.0); Allen Test ACCEPTAB; Arterial Base Excess -5.2 mmol/L (-3.0-3); Arterial COHb 0.3 % (0.0-3.0); Arterial Fraction of Oxyhgb 97.2 % (93.0-99.0); Arterial HCO3 18.3 mmol/L (22.0-26.0); Arterial MetHb 0 % (0.0-1.5); Arterial Total Hemglobin 10.7 g/dl (12.0-18.0); MODE VENT - AC
[2016-04-18 05:59] LABS: ADD SCAN DIFF NO
[2016-04-18 06:10] LABS: BASOPHIL # 0.1 10^3/ul (0.0-0.1); BASOPHILS % 0.9 % (0.0-2.0); EOSINOPHILS # 0.2 10^3/ul (0.0-0.5); EOSINOPHILS % 4.2 % (0.0-7.0); HEMATOCRIT 30.6 % (37.0-47.0); HEMOGLOBIN 9.7 g/dl (12.0-16.0); LYMPHOCYTES # 0.9 10^3/ul (0.8-2.9); LYMPHOCYTES % 15.5 % (15.0-51.0); MEAN CORPUSCULAR HEMOGLOBIN 24.3 pg (29.0-33.0); MEAN CORPUSCULAR HGB CONC 31.7 g/dl (32.0-37.0); MEAN CORPUSCULAR VOLUME 76.5 fl (82.0-101.0); MEAN PLATELET VOLUME 9.5 fl (7.4-10.4); MONOCYTE # 0.4 10^3/ul (0.3-0.9); MONOCYTES % 7.7 % (0.0-11.0); NEUTROPHIL # 3.9 10^3/ul (1.6-7.5); NEUTROPHILS % 71.2 % (39.0-77.0); PLATELET COUNT 223 10^3/UL (140-415); RED CELL DISTRIBUTION WIDTH 16.5 % (11.5-14.5); WHITE BLOOD COUNT 5.5 10^3/ul (4.8-10.8)
[2016-04-18 06:13] LABS: ALBUMIN 3.2 g/dl (3.3-4.9); POTASSIUM 3.6 mmol/L (3.5-5.1)
[2016-04-18 06:14] LABS: IRON 33 ug/dl (35-150)
[2016-04-18 06:15] LABS: LACTIC ACID 0.8 mmol/L (0.5-2.2)
[2016-04-18 06:15] LABS: CREATININE 0.63 mg/dl (0.44-1.00)
[2016-04-18 06:16] LABS: ALBUMIN/GLOBULIN RATIO 1.06; TOTAL PROTEIN 6.2 g/dl (6.1-8.1)
[2016-04-18 06:22] LABS: AMMONIA < 9 umol/l (9-30)
[2016-04-18 06:23] LABS: TOTAL IRON BINDING CAPACITY 365 ug/dl (241-421)
--- NOTE | 2016-04-18 06:56 | RADRPT ---
PROCEDURE: XR Chest. CLINICAL INDICATION: Respiratory failure TECHNIQUE: Portable single view of the chest COMPARISON: 04/17 FINDINGS: Lung volumes are increased compared with prior with slight decrease in bibasilar atelectasis or infi ltrates. Endotracheal and nasogastric tubes remain in place. There has otherwise been no interval change. IMPRESSION: Improved lung volumes with slight decrease in bibasilar atelectasis or infiltrates. RPTAT: HLBE Mary Babb Physician Date Time Electronically viewed and signed by Mary Babb Physician on 04/18/2016 06:56 LE/
--- NOTE | 2016-04-18 07:06 | SP ---
DATE OF PROCEDURE: TECHNIQUE: EEG done using 10-20 International electrode system with photic stimulation. FINDINGS: Bilateral occipital hemispheres showed theta waves 6-7 Hz, medium sized, low amplitude, s ymmetric bilateral. Photic stimulation done did not elicit drive. No epileptiform discharge or sei zure activity is recorded. IMPRESSION: This is normal electroencephalogram, shows generalized slowing, consistent with a histo ry of underlying encephalopathy. No epileptiform discharge or seizure activity recorded. Followup E EG may be needed if clinically indicated. Again, thank you for asking me to see the patient with you. Dictated By: RAIZA HUFFMAN/VÍCTOR Conf#: [id number] DID#: [id number]
--- NOTE | 2016-04-18 07:40 | CONS ---
Date/Time of Note Date/Time of Note DATE: 04/18/16 TIME: 07:37 Assessment/Plan Assessment/Plan Additional Assessment/Plan Ventilator settings; AC of 14, tidal volume 450, PEEP of 5, 30% FiO2. Chest x-ray was reviewed from today which is showing a scant right lower lobe infiltrate. Endotracheal tube is at a slightly high position. Assessment recommendations; next 1. Patient admitted with respiratory failure due to cocaine overdose. 2. Hypothermia with interval resolution. 3. Prerenal azotemia with interval correction as well. Next 4. Gram positive bacteremia with right lower lobe pneumonia. Next 5. Patient currently not ready to be weaned off from ventilator. Next Continue current treatment. Start tube feeding. Continue current ventilator settings, antibiotics. She has been switched over from Precedex to propofol. Consultation Date/Type/Reason Admit Date/Time Apr 15, 2016 at 17:52 Initial Consult Date Type of Consultation: Pulm 24 HR Interval Summary Free Text/Dictation Patient's condition remains critical. Patient was given a sedation vacation short while ago, the patient does become extremely agitated and tries to climb out of bed. General however has remained hemodynamically stable. General exam; elderly woman, orally intubated, sedated now. Currently in no distress. Exam/Review of Systems Vital Signs Vitals Vital Signs Date Time Temp Pulse Resp B/P Pulse Ox O2 Delivery O2 Flow Rate FiO2 04/18/16 07:18 82 23 100 30 04/18/16 06:00 133/105 Mechanical Ventilator 04/18/16 04:00 98.0 Intake and Output 04/17/16 04/17/16 04/18/16 15:00 23:00 07:00 Intake Total 809.76 ml 1000.88 ml 976.46 ml Output Total 1100 ml 1365 ml 1350 ml Balance -290.24 ml -364.12 ml -373.54 ml Exam H EENT examination; supple neck, no JVD. No lymphadenopathy. Midline trachea. Orally intubated. Patient is edentulous. Pupils are midsize and reactive to light bilaterally. No neck masses. Chest examination; clear to auscultation bilaterally. S1-S2 audible, no murmurs. Regular rhythm. Abdomen examination; soft, scaphoid, no organomegaly, bowel sounds audible. No organomegaly. Extremity exam; no peripheral edema. Pulses 1+ bilaterally. 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 Results Result Diagram: 04/18/16 0518 04/18/16 0514 Results 24 hrs Laboratory Tests Test 04/17/16 11:30 04/17/16 12:05 04/18/16 05:00 04/18/16 05:14 Stool Occult Blood NEGATIVE Vancomycin Level Trough 10.3 Arterial Blood HCO3 18.3 L Arterial Blood Base Excess -5.2 L Arterial Blood Oxygen Saturation 97.5 Charles Test ACCEPTAB Arterial Blood Gas Puncture Site Right Radial Arterial Blood Carboxyhemoglobin 0.3 Arterial Blood Date Drawn 04/18/2016 4:25:38 AM Arterial Blood Methemoglobin 0 Arterial Blood pCO2 (Temp correct) 29.4 L Arterial Blood pH (Temp corrected) 7.413 Arterial Blood pO2 (Temp corrected) 111.6 H Blood Gas A-a O2 Differential 67.8 H Blood Gas Actual Respiration Rate 17 Blood Gas Inspiratory Pressure 18.0 Blood Gas Low PEEP Setting 5.0 Blood Gas Modality VENT - AC Blood Gas Notified Time 04/18/2016 4:46:14 AM Blood Gas Notified Whom RTR Blood Gas Respiration Rate 14.0 Blood Gas Specimen Source Blood arterial Blood Gas Temperature 37.0 Blood Gas Tidal Volume 450.0 FiO2 30.0 Oxyhemoglobin Percent 97.2 Total Hemoglobin 10.7 L Alanine Aminotransferase (ALT/SGPT) 41 Albumin 3.2 L Albumin/Globulin Ratio 1.06 Alkaline Phosphatase 97 Anion Gap 16 Aspartate Amino Transf (AST/SGOT) 30 Blood Urea Nitrogen 7 Calcium Level 9.0 Carbon Dioxide Level 19 L Chloride Level 110 Creatinine 0.63 Direct Bilirubin 0.00 Ferritin 14.2 Globulin 3.00 Glucose Level 103 Indirect Bilirubin 0.0 Iron Level 33 L Percent Iron Saturation 9 L Potassium Level 3.6 Sodium Level 141 Total Bilirubin 0.0 L Total Iron Binding Capacity 365 Total Protein 6.2 Test 04/18/16 05:18 Ammonia < 9 L Basophils # 0.1 Basophils % 0.9 Eosinophils # 0.2 Eosinophils % 4.2 Hematocrit 30.6 L Hemoglobin 9.7 L Lactic Acid Level 0.8 Lymphocytes # 0.9 Lymphocytes % 15.5 Mean Corpuscular Hemoglobin 24.3 L Mean Corpuscular Hemoglobin Concent 31.7 L Mean Corpuscular Volume 76.5 L Mean Platelet Volume 9.5 Monocytes # 0.4 Monocytes % 7.7 Neutrophils # 3.9 Neutrophils % 71.2 Nucleated Red Blood Cells # 0.0 Nucleated Red Blood Cells % 0.0 Platelet Count 223 Red Blood Count 4.00 L Red Cell Distribution Width 16.5 H White Blood Count 5.5 Medications Medications Current Medications Ondansetron HCl (Zofran Inj) 4 mg Q6H PRN IV NAUSEA AND/OR VOMITING; Start 04/15 at 18:30 Acetaminophen (Tylenol Tab) 650 mg Q6H PRN PO PAIN LEVEL 1-3 OR FEVER; Start at 18:30 Acetaminophen/ Hydrocodone Bitart ([place] (5/325)) 1 tab Q6H PRN PO MODERATE PAIN LEVEL 4-6; Start 04/15/16 at 18:30 Morphine Sulfate (morphine) 2 mg Q4H PRN IV SEVERE PAIN LEVEL 7-10 Last administered on 04/16/16 04:51; Admin Dose 2 MG; Start 04/15/16 at 18:30 Docusate Sodium (Colace) 100 mg Q12H PRN PO CONSTIPATION; Start 04/15/16 at 18: 30 Magnesium Hydroxide (Milk Of Mag) 30 ml DAILY PRN [place] CONSTIPATION; Start at 18:30 Sodium Biphosphate/ Sodium Phosphate (Fleet Enema) 133 ml DAILY PRN [place] CONSTIPATION; Start 04/15/16 at 18:30 Famotidine 20 mg 20 mg Q12 IV Last administered on 04/17/16 20:29; Admin Dose 20 MG; Start 04/15/16 at 21:00 Sodium Chloride (NS) 1,000 ml @ 100 mls/hr Q10H IV Last administered on 01:01; Admin Dose 100 MLS/HR; Start 04/15/16 at 18:24 Nitroglycerin (Nitroglycerin (Sl Tab) 0.4 Mg) 1 tab Q5M PRN SL ANGINA; Start at 18:30 Lorazepam 1 mg 1 mg Q1H PRN IV CONTROL WITHDRAWAL SYMPTOMS Last administered on 04/18/16 03:45; Admin Dose 1 MG; Start 04/15/16 at 19:30 Propofol 100 ml @ 1.896 mls/ hr Q12H IV Last administered on 04/18/16 06:53; Admin Dose 18.96 MLS/HR; Start 3/4/17 at 00:30 Cefepime HCl 50 ml @ 100 mls/hr Q12 IVPB Last administered on 04/17/16 20:29; Admin Dose 100 MLS/HR; Start 04/16/16 at 21:00 Vancomycin HCl/ Sodium Chloride (Vancocin/NS) 150 ml @ 75 mls/hr Q12H IVPB Last administered on 04/18/16 01:02; Admin Dose 75 MLS/HR; Start 04/16/16 at 13: 00 Mupirocin 1 applic 1 applic BID TOP Last administered on 04/17/16 20:29; Admin Dose 1 APPLIC; Start 04/17/16 at 21:00; Stop 04/27/16 at 20:59 Dexmedetomidine HCl/Sodium Chloride (Precedex/NS) 50 ml @ 3.16 mls/hr TITRATE IV Last administered on 04/18/16 00:17; Admin Dose 3.16 MLS/HR; Start 04/18/16 at 00:00 Hydralazine HCl (Apresoline) 10 mg Q6H PRN IV SBP > 160 Last administered on 00:47; Admin Dose 10 MG; Start 04/18/16 at 00:30 VIANNEY TOVAR Apr 18, 2016 07:40
[2016-04-18] MEDS: CEFEPIME 2GM/50 ML (PMX) 50 ML IVPB SCH ×2 (08:59→21:06)
[2016-04-18] MEDS: FAMOTIDINE 20 MG INJ IV SCH ×2 (08:59→21:06)
[2016-04-18] MEDS: MUPIROCIN 2% 22 GM OINT TOP SCH ×2 (09:00→21:06)
[2016-04-18] MEDS ORDERED: ENOXAPARIN 30 MG/0.3 ML SYG SC SCH (09:00)
--- NOTE | 2016-04-18 10:19 | PN ---
Date/Time of Note Date/Time of Note DATE: 04/18/16 TIME: 10:04 Assessment/Plan VTE Prophylaxis VTE Prophylaxis Intervention: heparin, SCD's Lines/Catheters IV Catheter Type (from Nrs): Saline Lock Urinary Cath still in place: Yes Reason Cath still needed: other (indicate) Assessment/Plan Assessment/Plan 1. Altered mental status - -pt came with temp of 106. Possible anticholinergic overdose. Utox was also positive for cocaine and opiates. now normothermic 2. Vent dependent Respiratory Failure: 2/2 altered mentation 3. Sepsis with lactic acidosis - resolving. 4. Bilateral pneumonia and bacteremia 5. Chronic hypochromic microcytic Anemia 2/2 iron deficiency 6. Prerenal Azotemia: resolved 7. Substance abuse 8. PreDM A1c: 6.5 9. Mild Rhabdomyolysis 10. MRSA nares PLAN: Continue ICU supportive care / sedation support Continue IV fluids / Vent mgt / appreciate pulm input Continue Abx and tailor based on cultures IV Iron infusion Serial labs Gastrointestinal prophylaxis - H2 nelly. Deep venous thrombosis prophylaxis - Heparin CRITICAL CARE TIME: >35 mins Subjective 24 Hr Interval Summary Free Text/Dictation Patient seen and examined. Intubated and sedated for comfort Subjective hx not possible: pt critical status Exam/Review of Systems Vital Signs Vitals Vital Signs Date Time Temp Pulse Resp B/P Pulse Ox O2 Delivery O2 Flow Rate FiO2 04/18/16 09:31 77 19 100 30 04/18/16 06:00 133/105 Mechanical Ventilator 04/18/16 04:00 98.0 Intake and Output 04/17/16 04/17/16 04/18/16 15:00 23:00 07:00 Intake Total 809.76 ml 1000.88 ml 976.46 ml Output Total 1100 ml 1365 ml 1350 ml Balance -290.24 ml -364.12 ml -373.54 ml Exam Constitutional: other (intubated) Head: atraumatic, normocephalic Eyes: PERRL Respiratory: clear to auscultation, normal air movement Cardiovascular: nl pulses, regular rate and rhythm Gastrointestinal: non-tender, soft Extremities: normal pulses Results Result Diagram: 04/18/16 0518 04/18/16 0514 Results 24 hrs Laboratory Tests Test 04/17/16 11:30 04/17/16 12:05 04/18/16 05:00 04/18/16 05:14 Stool Occult Blood NEGATIVE Vancomycin Level Trough 10.3 Arterial Blood HCO3 18.3 L Arterial Blood Base Excess -5.2 L Arterial Blood Oxygen Saturation 97.5 Charles Test ACCEPTAB Arterial Blood Gas Puncture Site Right Radial Arterial Blood Carboxyhemoglobin 0.3 Arterial Blood Date Drawn 04/18/2016 4:25:38 AM Arterial Blood Methemoglobin 0 Arterial Blood pCO2 (Temp correct) 29.4 L Arterial Blood pH (Temp corrected) 7.413 Arterial Blood pO2 (Temp corrected) 111.6 H Blood Gas A-a O2 Differential 67.8 H Blood Gas Actual Respiration Rate 17 Blood Gas Inspiratory Pressure 18.0 Blood Gas Low PEEP Setting 5.0 Blood Gas Modality VENT - AC Blood Gas Notified Time 04/18/2016 4:46:14 AM Blood Gas Notified Whom RTR Blood Gas Respiration Rate 14.0 Blood Gas Specimen Source Blood arterial Blood Gas Temperature 37.0 Blood Gas Tidal Volume 450.0 FiO2 30.0 Oxyhemoglobin Percent 97.2 Total Hemoglobin 10.7 L Alanine Aminotransferase (ALT/SGPT) 41 Albumin 3.2 L Albumin/Globulin Ratio 1.06 Alkaline Phosphatase 97 Anion Gap 16 Aspartate Amino Transf (AST/SGOT) 30 Blood Urea Nitrogen 7 Calcium Level 9.0 Carbon Dioxide Level 19 L Chloride Level 110 Creatinine 0.63 Direct Bilirubin 0.00 Ferritin 14.2 Globulin 3.00 Glucose Level 103 Indirect Bilirubin 0.0 Iron Level 33 L Percent Iron Saturation 9 L Potassium Level 3.6 Sodium Level 141 Total Bilirubin 0.0 L Total Iron Binding Capacity 365 Total Protein 6.2 Test 04/18/16 05:18 Ammonia < 9 L Basophils # 0.1 Basophils % 0.9 Eosinophils # 0.2 Eosinophils % 4.2 Hematocrit 30.6 L Hemoglobin 9.7 L Lactic Acid Level 0.8 Lymphocytes # 0.9 Lymphocytes % 15.5 Mean Corpuscular Hemoglobin 24.3 L Mean Corpuscular Hemoglobin Concent 31.7 L Mean Corpuscular Volume 76.5 L Mean Platelet Volume 9.5 Monocytes # 0.4 Monocytes % 7.7 Neutrophils # 3.9 Neutrophils % 71.2 Nucleated Red Blood Cells # 0.0 Nucleated Red Blood Cells % 0.0 Platelet Count 223 Red Blood Count 4.00 L Red Cell Distribution Width 16.5 H White Blood Count 5.5 Medications Medications Current Medications Ondansetron HCl (Zofran Inj) 4 mg Q6H PRN IV NAUSEA AND/OR VOMITING; Start 04/15 at 18:30 Acetaminophen (Tylenol Tab) 650 mg Q6H PRN PO PAIN LEVEL 1-3 OR FEVER; Start at 18:30 Acetaminophen/ Hydrocodone Bitart ([place] (5/325)) 1 tab Q6H PRN PO MODERATE PAIN LEVEL 4-6; Start 04/15/16 at 18:30 Morphine Sulfate (morphine) 2 mg Q4H PRN IV SEVERE PAIN LEVEL 7-10 Last administered on 04/16/16 04:51; Admin Dose 2 MG; Start 04/15/16 at 18:30 Docusate Sodium (Colace) 100 mg Q12H PRN PO CONSTIPATION; Start 04/15/16 at 18: 30 Magnesium Hydroxide (Milk Of Mag) 30 ml DAILY PRN PO CONSTIPATION; Start at 18:30 Sodium Biphosphate/ Sodium Phosphate (Fleet Enema) 133 ml DAILY PRN [place] CONSTIPATION; Start 04/15/16 at 18:30 Famotidine 20 mg 20 mg Q12 IV Last administered on 04/18/16 08:59; Admin Dose 20 MG; Start 04/15/16 at 21:00 Sodium Chloride (NS) 1,000 ml @ 100 mls/hr Q10H IV Last administered on 07:48; Admin Dose 100 MLS/HR; Start 04/15/16 at 18:24 Nitroglycerin (Nitroglycerin (Sl Tab) 0.4 Mg) 1 tab Q5M PRN SL ANGINA; Start at 18:30 Lorazepam 1 mg 1 mg Q1H PRN IV CONTROL WITHDRAWAL SYMPTOMS Last administered on 04/18/16 07:45; Admin Dose 1 MG; Start 04/15/16 at 19:30 Propofol 100 ml @ 1.896 mls/ hr Q12H IV Last administered on 04/18/16 06:53; Admin Dose 18.96 MLS/HR; Start 04/16/16 at 00:30 Cefepime HCl 50 ml @ 100 mls/hr Q12 IVPB Last administered on 04/18/16 08:59; Admin Dose 100 MLS/HR; Start 04/16/16 at 21:00 Vancomycin HCl/ Sodium Chloride (Vancocin/NS) 150 ml @ 75 mls/hr Q12H IVPB Last administered on 04/18/16 01:02; Admin Dose 75 MLS/HR; Start 04/16/16 at 13: 00 Mupirocin 1 applic 1 applic BID TOP Last administered on 04/18/16 09:00; Admin Dose 1 APPLIC; Start 04/17/16 at 21:00; Stop 04/27/16 at 20:59 Dexmedetomidine HCl/Sodium Chloride (Precedex/NS) 50 ml @ 3.16 mls/hr TITRATE IV Last administered on 04/18/16 00:17; Admin Dose 3.16 MLS/HR; Start 04/18/16 at 00:00 Hydralazine HCl (Apresoline) 10 mg Q6H PRN IV SBP > 160 Last administered on 00:47; Admin Dose 10 MG; Start 04/18/16 at 00:30 Enoxaparin Sodium (Lovenox) 30 mg DAILY SC Last administered on 04/18/16 09:00 ; Admin Dose 30 MG; Start 04/18/16 at 09:00 Procedures Procedures PROCEDURE: XR Chest. CLINICAL INDICATION: Respiratory failure TECHNIQUE: Portable single view of the chest COMPARISON: 04/17 FINDINGS: Lung volumes are increased compared with prior with slight decrease in bibasilar atelectasis or infiltrates. Endotracheal and nasogastric tubes remain in place. There has otherwise been no interval change. IMPRESSION: Improved lung volumes with slight decrease in bibasilar atelectasis or infiltrates. RPTAT: HLBE Mary Babb Physician Date Time Electronically viewed and signed by Mary Babb Physician on 04/18/2016 06 :56 LE/ CC: RAIZA MANNING MD DATE OF PROCEDURE: 04/18/15 TECHNIQUE: EEG done using 10-20 International electrode system with photic stimulation. FINDINGS: Bilateral occipital hemispheres showed theta waves 6-7 Hz, medium sized, low amplitude, symmetric bilateral. Photic stimulation done did not elicit drive. No epileptiform discharge or seizure activity is recorded. IMPRESSION: This is normal electroencephalogram, shows generalized slowing, consistent with a history of underlying encephalopathy. No epileptiform discharge or seizure activity recorded. Followup EEG may be needed if clinically indicated. Again, thank you for asking me to see the patient with you. Dictated By: RAIZA HUFFMAN/VÍCTOR Conf#: [id number] DID#: [id number] PROCEDURE: CT Brain without. CLINICAL INDICATION: Possible sepsis. TECHNIQUE: A CT of the brain was performed on multidetector high-resolution CT scanner utilizing axial sections from the skull base through the vertex without contrast. The scan was reviewed in soft tissue brain and high frequency resolution bone algorithm windows. Images were reviewed on a high- resolution PACS workstation. One or more the following does reduction techniques were utilized: Automated exposure control, adjustment of the mA/ or kV according to patient's size, or use of iterative reconstruction technique. The exam CTDI = 39.46 mGy and the DLP = 554.95 mGy-cm. COMPARISON: None available. FINDINGS: The ventricles and sulci are mildly prominent indicative of volume loss. There is mild cerebellar volume loss. There is no intracranial hemorrhage, mass effect or midline shift. No abnormal intra-axial or extra-axial fluid collections are seen. The jacobo/white matter differentiation is preserved. There are mild scattered foci of hypoattenuation in the white matter, which are nonspecific in etiology but likely reflect chronic small vessel ischemic changes. There are mild intracranial vascular calcifications consistent with atherosclerosis. The visualized paranasal sinuses shows mild mucosal thickening of right ethmoid air cells and right sphenoid sinus. The mastoid air cells are essentially clear. IMPRESSION: 1. No acute intracranial hemorrhage, transcortical infarction or mass effect. 2. Mild intracranial atherosclerosis and chronic small vessel ischemic changes. 3. Mild generalized cerebral volume loss. 4. Mild scattered paranasal sinus disease. RPTAT: PP .Winifred Elder MD, MD Date Time Electronically viewed and signed by .Winfired Elder MD, on 04/15/2016 19: 00 .N/ CC: JESSI MARIE MD, BOLATITO M. Apr 18, 2016 10:15
--- NOTE | 2016-04-18 11:14 | RADRPT ---
PROCEDURE: XR Abdomen CLINICAL INDICATION: Orogastric tube placement TECHNIQUE: An AP supine radiograph of the abdomen was submitted. COMPARISON: None FINDINGS: The orogastric tube tip is satisfactorily positioned in the stomach. Surgical shabnam project to th e epigastrium and left upper quadrant. The bowel gas pattern reflects a mild ileus. No organomegaly or discrete mass is identified. No pathological calcification is identified. The osseous elements appear unremarkable. The right hemidiaphragm appears mildly elevated. IMPRESSION: 1. The orogastric tube is satisfactorily positioned. 2. Previous epigastric and left upper quadrant abdominal surgery. 3. The bowel gas pattern reflects an ileus. 4. Elevation right hemidiaphragm. Physician Naya Date Time Electronically viewed and signed by Physician Naya on 04/18/2016 11:14 /
[2016-04-18] MEDS: SOD FERRIC GLUC COMPLX 125 MG in SOD CHLORIDE 0.9% 100 ML IVPB SCH (11:37)
--- NOTE | 2016-04-18 12:07 | CONS ---
DATE OF ADMISSION: 04/15/2016 DATE OF CONSULTATION: 04/18/2016 REFERRING PHYSICIAN: Emily Alford MD HISTORY OF PRESENT ILLNESS: This is a 66-year-old female who was admitted to [facility] who was brought in with altered mental status. The patient was found down by para medics found to have a temperature of 106, was transferred to the intensive care unit, intubated and admitted to the ICU with sepsis syndrome. The patient remains in the intensive care unit receiving broad spectrum IV antibiotic coverage. She was diagnosed with bilateral pneumonia, multiple fluid and electrolyte abnormalities, prerenal azotemia and rhabdomyolysis. I am asked to speak with famil y members and assist with her ongoing care and communication primarily while here and critically ill . Tox screen positive for cocaine. ALLERGIES: NO KNOWN DRUG ALLERGIES. MEDICATION: Please refer to reconciliation sheet for medications. MAJOR MEDICAL PROBLEMS IN THE PAST: Incomplete database. SOCIAL HISTORY: Unknown. FAMILY HISTORY: Unknown. REVIEW OF SYSTEMS: Cannot be obtained. The patient is currently undergoing procedure. ASSESSMENT AND PLAN: This is a critically ill 66-year-old female who is intubated and sedated at th is time. Positive drug screen came in sepsis syndrome, bilateral pneumonia. I will contact family members and try to obtain more information as far as social history. She is a FULL [employer]. Dictated By: TANVI DELGADILLO MD, LP/NTS Conf#: [id number] DID#: [id number]
[2016-04-18] MEDS ORDERED: LIDOCAINE 1% (MDV) 20 ML INJ SC ONE (13:30)
[2016-04-18] MEDS: VANCOMYCIN 1 GM in NS 250 ML IVPB SCH (13:56)
[2016-04-18] MEDS ORDERED: SOD CHLORIDE 0.9% 100 ML ONE (16:24)
--- NOTE | 2016-04-18 16:35 | RADRPT ---
PROCEDURE: XR Chest. CLINICAL INDICATION: Check PICC line position. TECHNIQUE: Single frontal view. COMPARISON: 04/18/2016. 0612 hours. FINDINGS: There is a left arm PICC line with the tip in the cavoatrial junction region. There is mild atelect asis at the lung bases, improved. The lungs are otherwise clear. The endotracheal tube and nasogas tric tube are in satisfactory position. The heart size is normal. There is no pleural effusion. There is no pneumothorax. IMPRESSION: 1. Satisfactory position of left arm PICC line. 2. Improved appearance of the lung bases. RPTAT: QQ .Cedrick Hanna MD, MD Date Time Electronically viewed and signed by .Cedrick Hanna MD, MD on 04/18/2016 16:35 .R/
--- NOTE | 2016-04-18 16:49 | RADRPT ---
PROCEDURE: Ultrasound guidance for placement of needle in left upper extremity vein. CLINICAL INDICATION: Venous access. TECHNIQUE: Limited sonography of the left upper extremity was performed. Ultrasound images were recorded and s tored in the patient's medical record. COMPARISON: None. FINDINGS: The ultrasound images demonstrate a patent left upper extremity vein. The PICC line was inserted by the PICC line nurse. IMPRESSION: 1. Ultrasound guidance for a needle placement in a left upper extremity vein. 2. The left upper extremity vein is patent. RPTAT: QQ .Cedrick Hanna MD, MD Date Time Electronically viewed and signed by .Cedrick Hanna MD, MD on 04/18/2016 16:48 .R/
[2016-04-18] MEDS: HEPARIN 5,000 UNIT/0.5 ML SYG SC SCH (21:18)
--- NOTE | 2016-04-18 22:20 | PN ---
DATE: HISTORY OF PRESENT ILLNESS: The patient is a 66-year-old admitted to [facility] a fter she was found unresponsive in front of [facility]. The patient was positive for cocaine and opiates. CURRENT MEDICATIONS: Include: 1. Pepcid 20 mg once a day. 2. Lorazepam 1 mg every hour as needed. 3. Zofran 4 mg every 6 hours. ' 4. Tylenol 650 as needed. 5. Vancomycin 750 mg every 12 hours. 6. Cefepime every 12 hours. 4. [place] 5/325 mg every 6 hours as needed. 5. Morphine sulfate 2 mg every 4 hours as needed. 6. Colace 100 mg once a day. PHYSICAL EXAMINATION: GENERAL: Today, the patient is sleepy; however, arousable for painful stimuli, moving both upper an d lower extremities with localization of her brain. CRANIAL NERVES: Cranial nerve II: Pupils equal on both sides, reactive to light. Cranial nerves I II, IV, and : Extraocular muscles intact. Cranial nerve V: Equal sensation to face. Cranial ne rve VII: Symmetrical face. Cranial nerve VIII: Decreased hearing bilaterally. Cranial nerves IX and X: ____. Cranial nerve XI: Elevates shoulder 5/5. Cranial nerve XII: With straight tongue. MOTOR: Moving both upper and lower extremities against gravity. SENSATION, COORDINATION, AND GAIT: Could not assess. HEART: Regular rate and rhythm. LUNGS: Equal breath sounds. ABDOMEN: Soft, relaxed, nondistended. No tenderness. ASSESSMENT AND PLAN: 1. The patient is 66 years old status post overdose. 2. Acute encephalopathy, probably secondary to status post overdose. The patient was intubated and under propofol titration. 3. Electroencephalogram done, which showed no seizure activity, no epileptiform discharge with mild slowing. 4. Keep the patient under deep venous thrombosis prophylaxis as well as decubitus ulcer prophylaxis . Dictated By: RAIZA HUFFMAN/VÍCTOR Conf#: [id number] DID#: [id number]
[2016-04-19] VITALS (28 sets, daily range): BP systolic 101–164; BP diastolic 59–97; PULSE 68–90; RESP 10–28
[2016-04-19] MEDS: LORAZEPAM 2 MG INJ IV PRN (01:16)
[2016-04-19] MEDS: VANCOMYCIN 1 GM in NS 250 ML IVPB SCH (01:21)
[2016-04-19] MEDS: SOD CHLORIDE 0.9% 1,000 ML IV SCH (04:37)
[2016-04-19 05:16] LABS: ADD SCAN DIFF NO
[2016-04-19 05:19] LABS: EOSINOPHILS # 0.2 10^3/ul (0.0-0.5); EOSINOPHILS % 5.7 % (0.0-7.0); HEMATOCRIT 28.7 % (37.0-47.0); LYMPHOCYTES % 22.9 % (15.0-51.0); MEAN CORPUSCULAR HEMOGLOBIN 24.2 pg (29.0-33.0); MEAN CORPUSCULAR HGB CONC 31.4 g/dl (32.0-37.0); MEAN CORPUSCULAR VOLUME 77.2 fl (82.0-101.0); MEAN PLATELET VOLUME 9.4 fl (7.4-10.4); MONOCYTE # 0.3 10^3/ul (0.3-0.9); MONOCYTES % 8.1 % (0.0-11.0); NEUTROPHIL # 2.6 10^3/ul (1.6-7.5); NEUTROPHILS % 61.8 % (39.0-77.0); PLATELET COUNT 219 10^3/UL (140-415); RED BLOOD COUNT 3.72 10^6/ul (4.20-5.40); RED CELL DISTRIBUTION WIDTH 16.9 % (11.5-14.5); WHITE BLOOD COUNT 4.2 10^3/ul (4.8-10.8)
[2016-04-19] MEDS: PROPOFOL 100 ML IV SCH (05:21)
[2016-04-19 05:42] LABS: MAGNESIUM 1.6 mg/dl (1.7-2.5); PHOSPHORUS 3.3 mg/dl (2.5-4.9)
--- NOTE | 2016-04-19 07:25 | CONS ---
Date/Time of Note Date/Time of Note DATE: 04/19/16 TIME: 07:23 Assessment/Plan Assessment/Plan Additional Assessment/Plan Ventilator settings; assist control of 14, tidal volume 450, PEEP of 5, 30% FiO2. Assessment and recommendations; next 1. Patient admitted with respiratory failure due to cocaine overdose. 2. Hyperthermia with interval resolution. 3. Prerenal azotemia with interval resolution as well. 4. Gram-positive bacteremia. 5. Scant right lower lobe infiltrate. Stop sedation for now, once the patient is off sedative effect she will be evaluated for possible weaning from mechanical ventilation. Meanwhile magnesium to be replaced. At this time I would recommend stopping vancomycin with continuation of cefepime only. Consultation Date/Type/Reason Admit Date/Time Apr 15, 2016 at 17:52 Type of Consultation: Pulm 24 HR Interval Summary Free Text/Dictation Patient's condition remains critical. Still requiring full ventilator support and sedation. Patient has remained hemodynamically stable though. General examination; elderly lady, orally intubated, sedated currently in no distress. Exam/Review of Systems Vital Signs Vitals Vital Signs Date Time Temp Pulse Resp B/P Pulse Ox O2 Delivery O2 Flow Rate FiO2 04/19/16 06:00 76 13 134/88 100 Mechanical Ventilator 04/19/16 05:54 30 04/19/16 04:00 98.1 Intake and Output 04/18/16 04/18/16 04/19/16 15:00 23:00 07:00 Intake Total 1311.68 ml 636.88 ml 445 ml Output Total 710 ml 450 ml 450 ml Balance 601.68 ml 186.88 ml -5 ml Exam HEENT examination; supple neck, no JVD. No lymphadenopathy. Midline trachea. No thyromegaly. No neck masses. He was a small bilaterally. Patient is mostly edentulous. Orally intubated. Chest examination; clear to auscultation bilaterally. S1-S2 audible, no murmurs. Regular rhythm. Abdomen examination; soft, nondistended. No organomegaly. Bowel sounds audible. Extremity examination; no peripheral edema. OPENSTACK CLOUD CONSULTING ARCHITECT examination; patient is sedated. Results Result Diagram: 04/19/16 0445 04/18/16 0514 Results 24 hrs Laboratory Tests Test 04/19/16 04:45 Basophils # 0.0 Basophils % 1.0 Creatine Kinase 142 Eosinophils # 0.2 Eosinophils % 5.7 Hematocrit 28.7 L Hemoglobin 9.0 L Lymphocytes # 1.0 Lymphocytes % 22.9 Magnesium Level 1.6 L Mean Corpuscular Hemoglobin 24.2 L Mean Corpuscular Hemoglobin Concent 31.4 L Mean Corpuscular Volume 77.2 L Mean Platelet Volume 9.4 Monocytes # 0.3 Monocytes % 8.1 Neutrophils # 2.6 Neutrophils % 61.8 Nucleated Red Blood Cells # 0.0 Nucleated Red Blood Cells % 0.0 Phosphorus Level 3.3 Platelet Count 219 Red Blood Count 3.72 L Red Cell Distribution Width 16.9 H White Blood Count 4.2 #L Medications Medications Current Medications Ondansetron HCl (Zofran Inj) 4 mg Q6H PRN IV NAUSEA AND/OR VOMITING; Start 04/15 at 18:30 Acetaminophen (Tylenol Tab) 650 mg Q6H PRN PO PAIN LEVEL 1-3 OR FEVER; Start at 18:30 Acetaminophen/ Hydrocodone Bitart ([place] (5/325)) 1 tab Q6H PRN PO MODERATE PAIN LEVEL 4-6; Start 04/15/16 at 18:30 Morphine Sulfate (morphine) 2 mg Q4H PRN IV SEVERE PAIN LEVEL 7-10 Last administered on 04/16/16 04:51; Admin Dose 2 MG; Start 04/15/16 at 18:30 Docusate Sodium (Colace) 100 mg Q12H PRN PO CONSTIPATION; Start 04/15/16 at 18: 30 Magnesium Hydroxide (Milk Of Mag) 30 ml DAILY PRN PO CONSTIPATION; Start at 18:30 Sodium Biphosphate/ Sodium Phosphate (Fleet Enema) 133 ml DAILY PRN [place] CONSTIPATION; Start 04/15/16 at 18:30 Famotidine 20 mg 20 mg Q12 IV Last administered on 04/18/16 21:06; Admin Dose 20 MG; Start 04/15/16 at 21:00 Sodium Chloride (NS) 1,000 ml @ 100 mls/hr Q10H IV Last administered on 04:37; Admin Dose 100 MLS/HR; Start 04/15/16 at 18:24 Nitroglycerin (Nitroglycerin (Sl Tab) 0.4 Mg) 1 tab Q5M PRN SL ANGINA; Start at 18:30 Lorazepam 1 mg 1 mg Q1H PRN IV CONTROL WITHDRAWAL SYMPTOMS Last administered on 04/19/16 01:16; Admin Dose 1 MG; Start 04/15/16 at 19:30 Propofol 100 ml @ 1.896 mls/ hr Q12H IV Last administered on 04/19/16 05:21; Admin Dose 18.96 MLS/HR; Start 04/16/16 at 00:30 Cefepime HCl (Maxipime 2gm/50 ml (Pmx)) 50 ml @ 100 mls/hr Q12 IVPB Last administered on 04/18/16 21:06; Admin Dose 100 MLS/HR; Start 04/16/16 at 21:00 Mupirocin (Bactroban) 1 applic BID TOP Last administered on 04/18/16 21:06; Admin Dose 1 APPLIC; Start 04/17/16 at 21:00; Stop 04/27/16 at 20:59 Hydralazine HCl (Apresoline) 10 mg Q6H PRN IV SBP > 160 Last administered on 12:34; Admin Dose 10 MG; Start 04/18/16 at 00:30 Enoxaparin Sodium 30 mg 30 mg DAILY SC Last administered on 04/18/16 09:00; Admin Dose 30 MG; Start 04/18/16 at 09:00 Ferric Sodium Gluconate Complex/ Sodium Chloride (Ferrlecit/NS) 110 ml @ 100 mls/hr Q24H IVPB Last administered on 04/18/16 11:37; Admin Dose 100 MLS/HR; Start 04/18/16 at 11:30; Stop 04/20/16 at 12:35 Heparin Sodium (Porcine) 5000 unit 5,000 unit BID SC Last administered on 21:18; Admin Dose 5,000 UNIT; Start 04/18/16 at 21:00 Vancomycin HCl (Vancocin) 250 ml @ 125 mls/hr Q12H IVPB Last administered on 01:21; Admin Dose 125 MLS/HR; Start 04/18/16 at 13:00 IV Flush (NS 10 ml) 10 ml PRN PRN IV IV PROTOCOL; Start 04/18/16 at 16:00 VIANNEY TOVAR Apr 19, 2016 07:25
[2016-04-19 07:40] LABS: POTASSIUM 3.4 mmol/L (3.5-5.1)
[2016-04-19 07:42] LABS: CREATININE 0.65 mg/dl (0.44-1.00)
[2016-04-19 07:43] LABS: CALCIUM 9.3 mg/dl (8.4-10.2)
--- NOTE | 2016-04-19 07:48 | RADRPT ---
PROCEDURE: XR Chest. CLINICAL INDICATION: Shortness of breath. TECHNIQUE: A single portable view of the chest was obtained. COMPARISON: 04/18/2016 from 03:25 p.m. FINDINGS: The endotracheal tube, nasogastric tube, and left PICC line are essentially unchanged. The aorta is tortuous and atherosclerotic. The cardiomediastinal silhouette is otherwise within normal limits. The lung volumes are low with bibasilar compressive atelectasis which has increased. The remaining l ungs and pleural spaces are clear. The soft tissues and osseous structures demonstrate benign age r elated senescent changes. IMPRESSION: Low lung volumes with increase bibasilar compressive atelectasis. RPTAT: HPNM Physician Patrick Date Time Electronically viewed and signed by Adolph Barnett Physician on 04/19/2016 07:48 /
[2016-04-19] MEDS ORDERED: MAGNESIUM SULFATE 1 GM/D5W 100 ML IVPB ONE (08:00)
[2016-04-19] MEDS: CEFEPIME 2GM/50 ML (PMX) 50 ML IVPB SCH (08:51)
[2016-04-19] MEDS: MUPIROCIN 2% 22 GM OINT TOP SCH ×2 (08:51→21:29)
[2016-04-19] MEDS: FAMOTIDINE 20 MG INJ IV SCH ×2 (08:51→21:28)
[2016-04-19] MEDS: HEPARIN 5,000 UNIT/0.5 ML SYG SC SCH ×2 (08:54→21:35)
[2016-04-19] MEDS: hydrALAzine 20 MG INJ IV PRN (09:23)
--- NOTE | 2016-04-19 10:09 | PN ---
Date/Time of Note Date/Time of Note DATE: 04/19/16 TIME: 09:53 Assessment/Plan VTE Prophylaxis VTE Prophylaxis Intervention: heparin Lines/Catheters IV Catheter Type (from Nrs): PICC Line Central line still needed: Yes Urinary Cath still in place: Yes Reason Cath still needed: other (indicate) Assessment/Plan Assessment/Plan 1. Altered mental status - -pt came with temp of 106. Possible anticholinergic overdose. Utox was also positive for cocaine and opiates. now normothermic 2. Vent dependent Respiratory Failure: 2/2 altered mentation 3. Sepsis with lactic acidosis - resolving. 4. Bilateral pneumonia and bacteremia 5. Chronic hypochromic microcytic Anemia 2/2 iron deficiency 6. Prerenal Azotemia: resolved 7. Substance abuse with likely withdrawal at this time 8. PreDM A1c: 6.5 9. Mild Rhabdomyolysis 10. MRSA nares PLAN: Continue ICU supportive care / sedation support / CPAP trials ongoing Continue IV fluids / Vent mgt / appreciate pulm input Continue Abx Complete IV Iron infusion Replace lytes / Serial labs / tube feeds Gentle short term diuresis based on CXR findings Gastrointestinal prophylaxis - H2 nelly. Deep venous thrombosis prophylaxis - Heparin CRITICAL CARE TIME: >35 mins Subjective 24 Hr Interval Summary Free Text/Dictation Patient seen and examined. Moves a lot off sedation Subjective hx not possible: pt critical status Exam/Review of Systems Vital Signs Vitals Vital Signs Date Time Temp Pulse Resp B/P Pulse Ox O2 Delivery O2 Flow Rate FiO2 04/19/16 08:00 30 04/19/16 08:00 79 04/19/16 06:00 13 134/88 100 Mechanical Ventilator 04/19/16 04:00 98.1 Intake and Output 04/18/16 04/18/16 04/19/16 15:00 23:00 07:00 Intake Total 1311.68 ml 1272.72 ml 1245.00 ml Output Total 710 ml 450 ml 450 ml Balance 601.68 ml 822.72 ml 795.00 ml Exam Constitutional: other (intubated) Head: atraumatic, normocephalic Eyes: PERRL Respiratory: clear to auscultation, normal air movement Cardiovascular: nl pulses, regular rate and rhythm Gastrointestinal: non-tender, soft Extremities: normal pulses Results Result Diagram: 04/19/1644404/19/16444 Results 24 hrs Laboratory Tests Test 04/19/16 04:45 Anion Gap 15 Basophils # 0.0 Basophils % 1.0 Blood Urea Nitrogen 9 Calcium Level 9.3 Carbon Dioxide Level 18 L Chloride Level 112 H Creatine Kinase 142 Creatinine 0.65 Eosinophils # 0.2 Eosinophils % 5.7 Glucose Level 97 Hematocrit 28.7 L Hemoglobin 9.0 L Lymphocytes # 1.0 Lymphocytes % 22.9 Magnesium Level 1.6 L Mean Corpuscular Hemoglobin 24.2 L Mean Corpuscular Hemoglobin Concent 31.4 L Mean Corpuscular Volume 77.2 L Mean Platelet Volume 9.4 Monocytes # 0.3 Monocytes % 8.1 Neutrophils # 2.6 Neutrophils % 61.8 Nucleated Red Blood Cells # 0.0 Nucleated Red Blood Cells % 0.0 Phosphorus Level 3.3 Platelet Count 219 Potassium Level 3.4 L Red Blood Count 3.72 L Red Cell Distribution Width 16.9 H Sodium Level 142 White Blood Count 4.2 #L Medications Medications Current Medications Ondansetron HCl (Zofran Inj) 4 mg Q6H PRN IV NAUSEA AND/OR VOMITING; Start 04/15 at 18:30 Acetaminophen (Tylenol Tab) 650 mg Q6H PRN PO PAIN LEVEL 1-3 OR FEVER; Start at 18:30 Acetaminophen/ Hydrocodone Bitart ([place] (5/325)) 1 tab Q6H PRN PO MODERATE PAIN LEVEL 4-6; Start 04/15/16 at 18:30 Morphine Sulfate (morphine) 2 mg Q4H PRN IV SEVERE PAIN LEVEL 7-10 Last administered on 04/16/16 04:51; Admin Dose 2 MG; Start 04/15/16 at 18:30 Docusate Sodium (Colace) 100 mg Q12H PRN PO CONSTIPATION; Start 04/15/16 at 18: 30 Magnesium Hydroxide (Milk Of Mag) 30 ml DAILY PRN PO CONSTIPATION; Start at 18:30 Sodium Biphosphate/ Sodium Phosphate (Fleet Enema) 133 ml DAILY PRN [place] CONSTIPATION; Start 04/15/16 at 18:30 Famotidine 20 mg 20 mg Q12 IV Last administered on 04/19/16 08:51; Admin Dose 20 MG; Start 04/15/16 at 21:00 Sodium Chloride (NS) 1,000 ml @ 100 mls/hr Q10H IV Last administered on 04:37; Admin Dose 100 MLS/HR; Start 04/15/16 at 18:24 Nitroglycerin (Nitroglycerin (Sl Tab) 0.4 Mg) 1 tab Q5M PRN SL ANGINA; Start at 18:30 Lorazepam 1 mg 1 mg Q1H PRN IV CONTROL WITHDRAWAL SYMPTOMS Last administered on 04/19/16 01:16; Admin Dose 1 MG; Start 04/15/16 at 19:30 Propofol 100 ml @ 1.896 mls/ hr Q12H IV Last administered on 04/19/16 05:21; Admin Dose 18.96 MLS/HR; Start 04/16/16 at 00:30 Cefepime HCl (Maxipime 2gm/50 ml (Pmx)) 50 ml @ 100 mls/hr Q12 IVPB Last administered on 04/19/16 08:51; Admin Dose 100 MLS/HR; Start 04/16/16 at 21:00 Mupirocin (Bactroban) 1 applic BID TOP Last administered on 04/19/16 08:51; Admin Dose 1 APPLIC; Start 04/17/16 at 21:00; Stop 04/27/16 at 20:59 Hydralazine HCl 10 mg 10 mg Q6H PRN IV SBP > 160 Last administered on 04/19/16 09:23; Admin Dose 10 MG; Start 04/18/16 at 00:30 Ferric Sodium Gluconate Complex/ Sodium Chloride (Ferrlecit/NS) 110 ml @ 100 mls/hr Q24H IVPB Last administered on 04/18/16 11:37; Admin Dose 100 MLS/HR; Start 04/18/16 at 11:30; Stop 04/20/16 at 12:35 Heparin Sodium (Porcine) (Heparin (5000 Units/0.5 ml)) 5,000 unit BID SC Last administered on 04/19/16 08:54; Admin Dose 5,000 UNIT; Start 04/18/16 at 21:00 IV Flush (NS 10 ml) 10 ml PRN PRN IV IV PROTOCOL; Start 04/18/16 at 16:00 Procedures Procedures PROCEDURE: XR Chest. CLINICAL INDICATION: Shortness of breath. TECHNIQUE: A single portable view of the chest was obtained. COMPARISON: 04/18/2016 from 03:25 p.m. FINDINGS: The endotracheal tube, nasogastric tube, and left PICC line are essentially unchanged. The aorta is tortuous and atherosclerotic. The cardiomediastinal silhouette is otherwise within normal limits. The lung volumes are low with bibasilar compressive atelectasis which has increased. The remaining lungs and pleural spaces are clear. The soft tissues and osseous structures demonstrate benign age related senescent changes. IMPRESSION: Low lung volumes with increase bibasilar compressive atelectasis. RPTAT: HPNM Physician Patrick Date Time Electronically viewed and signed by Physician Patrick on 04/19/2016 07 :48 / CC: VIANNEY TOVAR BOLATITO M. Apr 19, 2016 10:04
[2016-04-19 10:20] LABS: AADO2 Arterial 63.2 mmHg (7.0-24.0); Allen Test ACCEPTAB; Arterial Base Excess -6.9 mmol/L (-3.0-3); Arterial COHb 0.3 % (0.0-3.0); Arterial Fraction of Oxyhgb 97.3 % (93.0-99.0); Arterial HCO3 16.4 mmol/L (22.0-26.0); Arterial MetHb 0.1 % (0.0-1.5); Arterial Total Hemglobin 10.3 g/dl (12.0-18.0); Blood Gas PS 10; MODE VENT - CPAP
[2016-04-19] MEDS: DOCUSATE SODIUM 100 MG CAP PO SCH ×2 (10:20→21:00)
[2016-04-19] MEDS: LEVOFLOXACIN 500MG/D5W (PMX) 100 ML IVPB SCH (10:20)
[2016-04-19] MEDS: FUROSEMIDE 20 MG INJ IV SCH (10:20)
[2016-04-19] MEDS: morphine 2 MG INJ IV PRN ×4 (10:21→23:02)
[2016-04-19] MEDS: SOD FERRIC GLUC COMPLX 125 MG in SOD CHLORIDE 0.9% 100 ML IVPB SCH (10:30)
[2016-04-19] MEDS ORDERED: POTASSIUM CHLORIDE 250 ML IVPB ONE (11:00)
--- NOTE | 2016-04-19 11:10 | PN ---
DATE: 04/19/2016 FAMILY CONFERENCE I reviewed the patient's chart today and she is on CPAP trial at this time. She is responding appro priately to questions. I have had a long conversation with her son yesterday. He is the next of brian. I did not speak to patient's boyfriend. The patient's son was traumatized, the fact that his mo ther was so ill. He had a very difficult time in finding her when she essentially disappeared, and called around to the police department and was finally able to locate her here at [facility]. He did bring up question whether or not prior diagnosis of lupus may have caused this c atastrophic event to have occurred. I told him there were multiple possibilities. I did tell him t hat she had positive drug screen for cocaine. He was very surprised of that and I asked him just to support his mom at this time and maybe there is some intervention that could be done sometime in th e future. He was receptive to that. I did him tell that there was a good possibility that she woul d improve and was able to be extubated. Dictated By: TANVI DELGADILLO MD LP/NTS Conf#: [id number] DID#: [id number]
[2016-04-20] VITALS (25 sets, daily range): BP systolic 70–141; BP diastolic 49–95; PULSE 74–86; RESP 10–37
--- NOTE | 2016-04-20 00:32 | CONS ---
DATE OF ADMISSION: 04/15/2016 DATE OF CONSULTATION: REFERRING PHYSICIAN: Dr. Hahn Thank you for asking me to see the patient with you. HISTORY OF PRESENT ILLNESS: The patient is a 66-year-old found unresponsive at [facility] in which the patient transferred to [facility] to emergency room for more evaluation and treatment for decreased mini mental status. The patient had cocaine and opioid in her system w hen she was admitted. CURRENT MEDICATIONS: Include: 1. Pepcid 20 mg once a day. 2. Lorazepam 1 mg every hour as needed. 3. Zofran 4 mg every 6 hours. 4. Tylenol 650 mg as needed. 5. Vancomycin ____ mg every 12 hours. 6. Cefepime every 12 hours. 7. [place] 5/325 mg every 6 hours as needed. 8. Morphine sulfate 2 mg every 4 hours. 9. Colace 100 mg once a day as needed. PHYSICAL EXAMINATION: GENERAL: The patient was alert, awake and can follow simple commands, still confused, inappropriate answers. CRANIAL NERVES: Cranial nerve II: Pupils equal on both sides, reactive to light. Cranial nerves I II, IV and : Extraocular muscles intact. No nystagmus. Cranial nerve V: Equal sensation to fac e. Cranial nerve VII: Symmetrical face. Cranial nerve VIII: Equal hearing bilaterally. Cranial nerve IX and X: Elevates palate. Cranial nerve XI: Elevates shoulder 5/5. Cranial nerve XII: St raight tongue. MOTOR: Decreased right hand customer accounts advisor, 4+/5. Sensation decreased for glove and sock area for light touc h and temperature. COORDINATION: [id number]-kb-[id number] grossly intact. HEART: Regular rate and rhythm. LUNGS: Equal breath sounds. ABDOMEN: Soft, relaxed, nondistended. No tenderness. ASSESSMENT AND PLAN: 1. This patient is 66 years old, status post overdose. 2. Acute encephalopathy, probably secondary to status post overdose in which the patient intubated and on intravenous propofol titration, which the patient is improving. 3. Will keep the patient on the deep venous thrombosis prophylaxis. Will add decubitus ulcer proph ylaxis. 4. Electroencephalogram showed no epileptiform discharge or seizure activity. 5. The patient might need director social service for counseling her about drug use and rehabilitation center s. Again, thank you for asking me to see the patient with you. Dictated By: RAIZA HUFFMAN/VÍCTOR Conf#: [id number] DID#: [id number]
[2016-04-20] MEDS: LORAZEPAM 2 MG INJ IV PRN (01:54)
[2016-04-20 05:33] LABS: ADD SCAN DIFF NO
[2016-04-20 05:38] LABS: BASOPHIL # 0.1 10^3/ul (0.0-0.1); BASOPHILS % 1.2 % (0.0-2.0); EOSINOPHILS # 0.3 10^3/ul (0.0-0.5); EOSINOPHILS % 5.2 % (0.0-7.0); HEMATOCRIT 29.3 % (37.0-47.0); HEMOGLOBIN 9.2 g/dl (12.0-16.0); LYMPHOCYTES # 1.4 10^3/ul (0.8-2.9); LYMPHOCYTES % 23.7 % (15.0-51.0); MEAN CORPUSCULAR HEMOGLOBIN 23.9 pg (29.0-33.0); MEAN CORPUSCULAR HGB CONC 31.4 g/dl (32.0-37.0); MEAN CORPUSCULAR VOLUME 76.1 fl (82.0-101.0); MEAN PLATELET VOLUME 9.4 fl (7.4-10.4); MONOCYTE # 0.5 10^3/ul (0.3-0.9); MONOCYTES % 8.2 % (0.0-11.0); NEUTROPHIL # 3.7 10^3/ul (1.6-7.5); NEUTROPHILS % 61.2 % (39.0-77.0); PLATELET COUNT 238 10^3/UL (140-415); RED BLOOD COUNT 3.85 10^6/ul (4.20-5.40); RED CELL DISTRIBUTION WIDTH 17.1 % (11.5-14.5)
[2016-04-20 06:19] LABS: POTASSIUM 3.3 mmol/L (3.5-5.1)
[2016-04-20 06:22] LABS: CREATININE 0.66 mg/dl (0.44-1.00)
[2016-04-20 06:23] LABS: CALCIUM 9.1 mg/dl (8.4-10.2)
--- NOTE | 2016-04-20 07:12 | CONS ---
Date/Time of Note Date/Time of Note DATE: 04/20/16 TIME: 07:10 Assessment/Plan Assessment/Plan Additional Assessment/Plan Assessment and recommendations; 1. Patient admitted with respiratory failure due to cocaine overdose as well as scant right lower lobe pneumonia. 2. Status post treatment for hyperthermia. Next 3. Prerenal azotemia on presentation with interval resolution. 4. Gram-positive bacteremia. Continue current treatment. Patient transferred to the medical floor. Consultation Date/Type/Reason Admit Date/Time Apr 15, 2016 at 17:52 Type of Consultation: Pulm 24 HR Interval Summary Free Text/Dictation Patient condition is stable. She was successfully extubated yesterday morning. Denies any shortness of breath, dysphagia, chest pain, fever chills. General examination; elderly lady, awake alert currently in no distress. Exam/Review of Systems Vital Signs Vitals Vital Signs Date Time Temp Pulse Resp B/P Pulse Ox O2 Delivery O2 Flow Rate FiO2 04/20/16 06:00 82 37 114/95 98 Room Air 04/20/16 04:13 3.0 04/20/16 04:00 98.0 04/19/16 16:37 30 Intake and Output 04/19/16 04/19/16 04/20/16 14:59 22:59 06:59 Intake Total 560 ml Output Total 2700 ml 990 ml 520 ml Balance -2140 ml -990 ml -520 ml Exam H EENT examination; supple neck, no JVD. No lymphadenopathy. Midline trachea. No neck masses. Pharynx is clear. Patient has a few remaining teeth. Chest examination; clear to auscultation bilaterally. S1-S2 audible, no murmurs. Regular rhythm. Abdomen examination; soft, nontender. No organomegaly. Bowel sounds audible. Extremity examination; no peripheral edema. Pulses 1+ bilaterally. Next SUPERINTENDENT COMMUNICATIONS examination; no focal deficit. Results Result Diagram: 04/20/16 0400 04/20/16 0400 Results 24 hrs Laboratory Tests Test 04/19/16 09:45 04/20/16 04:00 Arterial Blood HCO3 16.4 L Arterial Blood Base Excess -6.9 L Arterial Blood Oxygen Saturation 97.7 Charles Test ACCEPTAB Arterial Blood Gas Puncture Site Right Radial Arterial Blood Carboxyhemoglobin 0.3 Arterial Blood Date Drawn 04/19/2016 10:11:37 AM Arterial Blood Methemoglobin 0.1 Arterial Blood pCO2 (Temp correct) 26.2 L Arterial Blood pH (Temp corrected) 7.415 Arterial Blood pO2 (Temp corrected) 119.9 H Blood Gas A-a O2 Differential 63.2 H Blood Gas Actual Respiration Rate 11 Blood Gas Low PEEP Setting 5.0 Blood Gas Modality VENT - CPAP Blood Gas Notified Time 04/19/2016 10:20:23 AM Blood Gas Notified Whom JLD Blood Gas Pressure Support 10 Blood Gas Specimen Source Blood arterial Blood Gas Temperature 37.0 FiO2 30.0 Oxyhemoglobin Percent 97.3 Total Hemoglobin 10.3 L Anion Gap 12 Basophils # 0.1 Basophils % 1.2 Blood Urea Nitrogen 8 Calcium Level 9.1 Carbon Dioxide Level 24 Chloride Level 109 Creatinine 0.66 Eosinophils # 0.3 Eosinophils % 5.2 Glucose Level 85 Hematocrit 29.3 L Hemoglobin 9.2 L Lymphocytes # 1.4 Lymphocytes % 23.7 Mean Corpuscular Hemoglobin 23.9 L Mean Corpuscular Hemoglobin Concent 31.4 L Mean Corpuscular Volume 76.1 L Mean Platelet Volume 9.4 Monocytes # 0.5 Monocytes % 8.2 Neutrophils # 3.7 Neutrophils % 61.2 Nucleated Red Blood Cells # 0.0 Nucleated Red Blood Cells % 0.0 Platelet Count 238 Potassium Level 3.3 L Red Blood Count 3.85 L Red Cell Distribution Width 17.1 H Sodium Level 142 White Blood Count 6.0 # Medications Medications Current Medications Ondansetron HCl (Zofran Inj) 4 mg Q6H PRN IV NAUSEA AND/OR VOMITING Last administered on 04/20/16 06:26; Admin Dose 4 MG; Start 04/15/16 at 18:30 Acetaminophen (Tylenol Tab) 650 mg Q6H PRN PO PAIN LEVEL 1-3 OR FEVER; Start at 18:30 Acetaminophen/ Hydrocodone Bitart ([place] (5/325)) 1 tab Q6H PRN PO MODERATE PAIN LEVEL 4-6; Start 04/15/16 at 18:30 Morphine Sulfate (morphine) 2 mg Q4H PRN IV SEVERE PAIN LEVEL 7-10 Last administered on 04/19/16 23:02; Admin Dose 2 MG; Start 04/15/16 at 18:30 Magnesium Hydroxide (Milk Of Mag) 30 ml DAILY PRN PO CONSTIPATION; Start at 18:30 Sodium Biphosphate/ Sodium Phosphate (Fleet Enema) 133 ml DAILY PRN [place] CONSTIPATION; Start 04/15/16 at 18:30 Famotidine (Pepcid Iv) 20 mg Q12 IV Last administered on 04/19/16 21:28; Admin Dose 20 MG; Start 04/15/16 at 21:00 Nitroglycerin (Nitroglycerin (Sl Tab) 0.4 Mg) 1 tab Q5M PRN SL ANGINA; Start at 18:30 Lorazepam 1 mg 1 mg Q1H PRN IV CONTROL WITHDRAWAL SYMPTOMS Last administered on 04/20/16 01:54; Admin Dose 1 MG; Start 04/15/16 at 19:30 Propofol (Diprivan) 100 ml @ 1.896 mls/ hr Q12H IV Last administered on 05:21; Admin Dose 18.96 MLS/HR; Start 04/16/16 at 00:30 Mupirocin (Bactroban) 1 applic BID TOP Last administered on 04/19/16 21:29; Admin Dose 1 APPLIC; Start 04/17/16 at 21:00; Stop 04/27/16 at 20:59 Hydralazine HCl 10 mg 10 mg Q6H PRN IV SBP > 160 Last administered on 04/19/16 09:23; Admin Dose 10 MG; Start 04/18/16 at 00:30 Ferric Sodium Gluconate Complex/ Sodium Chloride (Ferrlecit/NS) 110 ml @ 100 mls/hr Q24H IVPB Last administered on 04/19/16 10:30; Admin Dose 100 MLS/HR; Start 04/18/16 at 11:30; Stop 04/20/16 at 12:35 Heparin Sodium (Porcine) (Heparin (5000 Units/0.5 ml)) 5,000 unit BID SC Last administered on 04/19/16 21:35; Admin Dose 5,000 UNIT; Start 04/18/16 at 21:00 IV Flush (NS 10 ml) 10 ml PRN PRN IV IV PROTOCOL; Start 04/18/16 at 16:00 Docusate Sodium (Colace) 100 mg BID PO ; Start 04/19/16 at 10:30 Furosemide 20 mg 20 mg DAILY IV Last administered on 04/19/16 10:20; Admin Dose 20 MG; Start 04/19/16 at 10:30; Stop 04/22/16 at 10:29 Levofloxacin/ Dextrose (Levaquin 500mg/ D5W 100 ml (Pmx)) 100 ml @ 100 mls/hr Q24H IVPB Last administered on 04/19/16t 10:20; Admin Dose 100 MLS/HR; Start 04/19/16 at 11:00 VIANNEY TOVAR Apr 20, 2016 07:12
[2016-04-20] MEDS: FUROSEMIDE 20 MG INJ IV SCH (08:25)
[2016-04-20] MEDS: DOCUSATE SODIUM 100 MG CAP PO SCH ×2 (08:25→20:19)
[2016-04-20] MEDS: HEPARIN 5,000 UNIT/0.5 ML SYG SC SCH ×2 (08:26→20:29)
[2016-04-20] MEDS ORDERED: POTASSIUM CHLORIDE (SR) 20 MEQ TAB PO STA (08:39)
[2016-04-20] MEDS: morphine 2 MG INJ IV PRN ×2 (09:06→20:20)
[2016-04-20] MEDS: FAMOTIDINE 20 MG INJ IV SCH ×2 (09:06→20:19)
[2016-04-20] MEDS: MUPIROCIN 2% 22 GM OINT TOP SCH ×2 (10:21→20:19)
[2016-04-20] MEDS: SOD FERRIC GLUC COMPLX 125 MG in SOD CHLORIDE 0.9% 100 ML IVPB SCH (11:02)
[2016-04-20] MEDS: LEVOFLOXACIN 500MG/D5W (PMX) 100 ML IVPB SCH (11:02)
--- NOTE | 2016-04-20 15:53 | PN ---
Date/Time of Note Date/Time of Note DATE: 04/20/16 TIME: 15:51 Assessment/Plan VTE Prophylaxis VTE Prophylaxis Intervention: heparin Lines/Catheters IV Catheter Type (from Nrs): PICC Line Central line still needed: Yes Urinary Cath still in place: Yes Reason Cath still needed: other (indicate) Assessment/Plan Assessment/Plan 1. Altered mental status - resolved -pt came with temp of 106. Possible anticholinergic overdose. Utox was also positive for cocaine and opiates. now normothermic 2. Vent dependent Respiratory Failure: 2/2 altered mentation: resolved 3. Sepsis with lactic acidosis - resolving. 4. Bilateral pneumonia and bacteremia 5. Chronic hypochromic microcytic Anemia 2/2 iron deficiency 6. Prerenal Azotemia: resolved 7. Substance abuse with likely withdrawal at this time 8. PreDM A1c: 6.5 9. Mild Rhabdomyolysis 10. MRSA nares PLAN: Patient stable for telemetry transfer Continue Abx Complete IV Iron infusion Replace lytes / Serial labs / commence puree diet Gentle short term diuresis based on CXR findings Await PT eval, then d/c burgess after Gastrointestinal prophylaxis - H2 nelly. Deep venous thrombosis prophylaxis - Heparin CRITICAL CARE TIME: >35 min Subjective 24 Hr Interval Summary Free Text/Dictation Patient seen and examined. remains comfortable on nasal canula Exam/Review of Systems Vital Signs Vitals Vital Signs Date Time Temp Pulse Resp B/P Pulse Ox O2 Delivery O2 Flow Rate FiO2 04/20/16 13:00 82 20 107/55 100 Room Air 04/20/16 12:00 98.0 04/20/16 04:13 3.0 04/19/16 16:37 30 Intake and Output 04/19/16 04/19/16 04/20/16 14:59 22:59 06:59 Intake Total 560 ml Output Total 2700 ml 990 ml 520 ml Balance -2140 ml -990 ml -520 ml Exam Constitutional: alert, frail, oriented, No distress Head: normocephalic Eyes: PERRL ENMT: mucosa pink and moist Respiratory: crackles/rales (occ), diminished breath sounds Cardiovascular: regular rate and rhythm, No murmurs/extra sounds Gastrointestinal: bowel sounds, non-tender, soft Extremities: No edema Results Result Diagram: 3/8/17 0400 3/8/17 0400 Results 24 hrs Laboratory Tests Test 04/20/16 04:00 Anion Gap 12 Basophils # 0.1 Basophils % 1.2 Blood Urea Nitrogen 8 Calcium Level 9.1 Carbon Dioxide Level 24 Chloride Level 109 Creatinine 0.66 Eosinophils # 0.3 Eosinophils % 5.2 Glucose Level 85 Hematocrit 29.3 L Hemoglobin 9.2 L Lymphocytes # 1.4 Lymphocytes % 23.7 Mean Corpuscular Hemoglobin 23.9 L Mean Corpuscular Hemoglobin Concent 31.4 L Mean Corpuscular Volume 76.1 L Mean Platelet Volume 9.4 Monocytes # 0.5 Monocytes % 8.2 Neutrophils # 3.7 Neutrophils % 61.2 Nucleated Red Blood Cells # 0.0 Nucleated Red Blood Cells % 0.0 Platelet Count 238 Potassium Level 3.3 L Red Blood Count 3.85 L Red Cell Distribution Width 17.1 H Sodium Level 142 White Blood Count 6.0 # Medications Medications Current Medications Ondansetron HCl (Zofran Inj) 4 mg Q6H PRN IV NAUSEA AND/OR VOMITING Last administered on 04/20/16 06:26; Admin Dose 4 MG; Start 04/15/16 at 18:30 Acetaminophen (Tylenol Tab) 650 mg Q6H PRN PO PAIN LEVEL 1-3 OR FEVER; Start at 18:30 Acetaminophen/ Hydrocodone Bitart ([place] (5/325)) 1 tab Q6H PRN PO MODERATE PAIN LEVEL 4-6; Start 04/15/16 at 18:30 Morphine Sulfate (morphine) 2 mg Q4H PRN IV SEVERE PAIN LEVEL 7-10 Last administered on 04/20/16 09:06; Admin Dose 2 MG; Start 04/15/16 at 18:30 Magnesium Hydroxide (Milk Of Mag) 30 ml DAILY PRN PO CONSTIPATION; Start at 18:30 Sodium Biphosphate/ Sodium Phosphate (Fleet Enema) 133 ml DAILY PRN [place] CONSTIPATION; Start 04/15/16 at 18:30 Famotidine (Pepcid Iv) 20 mg Q12 IV Last administered on 04/20/16 09:06; Admin Dose 20 MG; Start 04/15/16 at 21:00 Nitroglycerin (Nitroglycerin (Sl Tab) 0.4 Mg) 1 tab Q5M PRN SL ANGINA; Start at 18:30 Lorazepam (Ativan) 1 mg Q1H PRN IV CONTROL WITHDRAWAL SYMPTOMS Last administered on 04/20/16 01:54; Admin Dose 1 MG; Start 04/15/16 at 19:30 Mupirocin (Bactroban) 1 applic BID TOP Last administered on 04/19/16 21:29; Admin Dose 1 APPLIC; Start 04/17/16 at 21:00; Stop 04/27/16 at 20:59 Hydralazine HCl (Apresoline) 10 mg Q6H PRN IV SBP > 160 Last administered on 09:23; Admin Dose 10 MG; Start 04/18/16 at 00:30 Heparin Sodium (Porcine) (Heparin (5000 Units/0.5 ml)) 5,000 unit BID SC Last administered on 04/20/16 08:26; Admin Dose 5,000 UNIT; Start 04/18/16 at 21:00 IV Flush (NS 10 ml) 10 ml PRN PRN IV IV PROTOCOL; Start 04/18/16 at 16:00 Docusate Sodium (Colace) 100 mg BID PO Last administered on 04/20/16 08:25; Admin Dose 100 MG; Start 04/19/16 at 10:30 Furosemide 20 mg 20 mg DAILY IV Last administered on 04/20/16 08:25; Admin Dose 20 MG; Start 04/19/16 at 10:30; Stop 04/22/16 at 10:29 Levofloxacin/ Dextrose (Levaquin 500mg/ D5W 100 ml (Pmx)) 100 ml @ 100 mls/hr Q24H IVPB Last administered on 04/20/16 11:02; Admin Dose 100 MLS/HR; Start 04/19/16 at 11:00 Procedures Procedures PROCEDURE: XR Chest. CLINICAL INDICATION: Shortness of breath. TECHNIQUE: A single portable view of the chest was obtained. COMPARISON: 04/18/2016 from 03:25 p.m. FINDINGS: The endotracheal tube, nasogastric tube, and left PICC line are essentially unchanged. The aorta is tortuous and atherosclerotic. The cardiomediastinal silhouette is otherwise within normal limits. The lung volumes are low with bibasilar compressive atelectasis which has increased. The remaining lungs and pleural spaces are clear. The soft tissues and osseous structures demonstrate benign age related senescent changes. IMPRESSION: Low lung volumes with increase bibasilar compressive atelectasis. RPTAT: HPNM Adolph Barnett, Physician Date Time Electronically viewed and signed by Adolph Barnett, Physician on 04/19/2016 07 :48 / CC: VIANNEY TOVAR BOLATITO M. Apr 20, 2016 15:53
--- NOTE | 2016-04-20 20:38 | PN ---
DATE: REFERRING PHYSICIAN: Glenroy Hahn SUBJECTIVE: The patient is 66 years old lady found at [facility] in which the p atient was admitted for more evaluation and treatment at [facility] for more evalu ation and treatment. CURRENT MEDICATIONS: Include: 1. Pepcid 20 mg once a day. 2. Lorazepam 1 mg as needed. 3. Zofran 4 mg every 6 hours. 4. Tylenol 650 mg as needed. 5. Vancomycin twice a day. 6. Cefepime ____ mg once a day. 7. [place] 5/325 mg every 6 hours as needed. 8. Morphine sulfate 2 mg every 4 hours. 9. Colace 100 mg as needed. OBJECTIVE: GENERAL: The patient is alert, awake. Opens her eyes spontaneously. CRANIAL NERVES: Cranial nerve II: Pupils equal on both sides, reactive to light. Cranial nerves I II, IV, and : Extraocular muscles intact. Cranial nerve V: Equal sensation to face. Cranial ne rve VII: Symmetrical face. Cranial nerve VIII: Decreased hearing bilaterally. Cranial nerves IX and X: Elevates palate. Cranial nerve XI: Elevates shoulder 5/5. Cranial nerve XII: With straig ht tongue. MOTOR: ____. SENSATION: ____ temperature. COORDINATION: ____ intact. HEART: Regular rate and rhythm. LUNGS: Equal breath sounds. ABDOMEN: Soft, relaxed, nondistended. No tenderness. ASSESSMENT AND PLAN: 1. The patient is a 66-year-old lady status post morphine and cocaine use. 2. History of acute encephalopathy, probably secondary to the patient is a 66-year-old lady status post morphine and cocaine use. 3. We will keep the patient on deep vein thrombosis prophylaxis, will add decubitus ulcer prophylax is. 4. Electroencephalogram, which was done, shows no seizure activity or epileptiform discharge. I wi ll follow up the patient. Under seizure precaution for now. Dictated By: RAIZA HUFFMAN/VÍCTOR Conf#: [id number] DID#: [id number]
[2016-04-21] VITALS (12 sets, daily range): BP systolic 94–126; BP diastolic 53–78; PULSE 75–83; RESP 14–20
[2016-04-21] MEDS: morphine 2 MG INJ IV PRN ×4 (06:26→20:58)
[2016-04-21] MEDS: FUROSEMIDE 20 MG INJ IV SCH (08:38)
[2016-04-21] MEDS: FAMOTIDINE 20 MG INJ IV SCH ×2 (08:38→20:58)
[2016-04-21] MEDS: DOCUSATE SODIUM 100 MG CAP PO SCH ×2 (08:38→20:58)
[2016-04-21] MEDS: LEVOFLOXACIN 500MG/D5W (PMX) 100 ML IVPB SCH (08:39)
[2016-04-21] MEDS: HEPARIN 5,000 UNIT/0.5 ML SYG SC SCH ×2 (08:51→21:06)
[2016-04-21] MEDS ORDERED: MUPI22OI2 TOP (11:53)
[2016-04-21] MEDS ORDERED: FLUT9.9S NASAL (11:53)
[2016-04-21] MEDS ORDERED: LEVO500T72 PO (11:53)
[2016-04-21] MEDS ORDERED: COLACE PO (11:53)
[2016-04-21] MEDS ORDERED: NEXIUM PO (11:53)
[2016-04-21 12:23] LABS: ADD SCAN DIFF NO
[2016-04-21 12:28] LABS: BASOPHIL # 0.1 10^3/ul (0.0-0.1); EOSINOPHILS # 0.3 10^3/ul (0.0-0.5); EOSINOPHILS % 4.6 % (0.0-7.0); HEMOGLOBIN 9.6 g/dl (12.0-16.0); LYMPHOCYTES # 1.4 10^3/ul (0.8-2.9); LYMPHOCYTES % 22.6 % (15.0-51.0); MEAN CORPUSCULAR HEMOGLOBIN 23.8 pg (29.0-33.0); MEAN CORPUSCULAR VOLUME 76.7 fl (82.0-101.0); MEAN PLATELET VOLUME 9.1 fl (7.4-10.4); MONOCYTE # 0.5 10^3/ul (0.3-0.9); MONOCYTES % 7.5 % (0.0-11.0); NEUTROPHIL # 3.9 10^3/ul (1.6-7.5); NEUTROPHILS % 63.3 % (39.0-77.0); PLATELET COUNT 253 10^3/UL (140-415); RED BLOOD COUNT 4.04 10^6/ul (4.20-5.40); RED CELL DISTRIBUTION WIDTH 17.2 % (11.5-14.5); WHITE BLOOD COUNT 6.1 10^3/ul (4.8-10.8)
[2016-04-21 12:37] LABS: POTASSIUM 3.5 mmol/L (3.5-5.1)
[2016-04-21 12:39] LABS: CREATININE 0.75 mg/dl (0.44-1.00)
[2016-04-21 12:40] LABS: CALCIUM 9.5 mg/dl (8.4-10.2)
[2016-04-21] MEDS: MUPIROCIN 2% 22 GM OINT TOP SCH ×2 (14:21→21:00)
[2016-04-21] MEDS ORDERED: MAGNESIUM SULFATE 2 GM/50 ML 50 ML IVPB ONE (14:30)
--- NOTE | 2016-04-21 15:07 | PN ---
Date/Time of Note Date/Time of Note DATE: 04/21/16 TIME: 14:27 Assessment/Plan VTE Prophylaxis VTE Prophylaxis Intervention: heparin Lines/Catheters IV Catheter Type (from [facility]): PICC Line Central line still needed: Yes Urinary Cath still in place: Yes Reason Cath still needed: other (indicate) (d/c) Assessment/Plan Assessment/Plan 1. Altered mental status - resolved -pt came with temp of 106. Possible anticholinergic overdose. Utox was also positive for cocaine and opiates. now normothermic 2. Vent dependent Respiratory Failure: 2/2 altered mentation: resolved 3. Sepsis with lactic acidosis - resolved. 4. Bilateral pneumonia and bacteremia 5. Chronic hypochromic microcytic Anemia 2/2 iron deficiency 6. Prerenal Azotemia: resolved 7. Substance abuse s/p withdrawal 8. PreDM A1c: 6.5 9. Mild Rhabdomyolysis: resolved 10. MRSA nares PLAN: Patient still mildly unstable for d/c with some orthostasis Continue Abx Complete IV Iron infusion Replace lytes / Serial labs / commence puree diet Gentle short term diuresis based on CXR findings d/c burgess today Plan for d/c later today or tomorrow Gastrointestinal prophylaxis - H2 nelly. Deep venous thrombosis prophylaxis - Heparin Subjective 24 Hr Interval Summary Free Text/Dictation Patient reports feeling much better, wants to go home Exam/Review of Systems Vital Signs Vitals Vital Signs Date Time Temp Pulse Resp B/P Pulse Ox O2 Delivery O2 Flow Rate FiO2 04/21/16 12:31 82 04/21/16 11:20 98.8 18 110/57 97 04/21/16 08:10 Nasal Cannula 2.0 04/19/16 16:37 30 Intake and Output 04/20/16 04/20/16 04/21/16 15:00 23:00 07:00 Intake Total 850 ml 320 ml 200 ml Output Total 1040 ml 918 ml 423 ml Balance -190 ml -598 ml -223 ml Exam Constitutional: alert, oriented Head: atraumatic, normocephalic Eyes: PERRL Neck: non-tender, supple Respiratory: diminished breath sounds Cardiovascular: regular rate and rhythm, No murmurs/extra sounds Gastrointestinal: bowel sounds, non-tender, soft Extremities: No edema Neurological: lethargic, nl mental status, No focal weakness Results Result Diagram: 04/21/16 1207 04/21/16 1207 Results 24 hrs Laboratory Tests Test 04/21/16 12:07 Anion Gap 16 Basophils # 0.1 Basophils % 1.0 Blood Urea Nitrogen 9 Calcium Level 9.5 Carbon Dioxide Level 26 Chloride Level 104 Creatinine 0.75 Eosinophils # 0.3 Eosinophils % 4.6 Glucose Level 128 # Hematocrit 31.0 L Hemoglobin 9.6 L Lymphocytes # 1.4 Lymphocytes % 22.6 Mean Corpuscular Hemoglobin 23.8 L Mean Corpuscular Hemoglobin Concent 31.0 L Mean Corpuscular Volume 76.7 L Mean Platelet Volume 9.1 Monocytes # 0.5 Monocytes % 7.5 Neutrophils # 3.9 Neutrophils % 63.3 Nucleated Red Blood Cells # 0.0 Nucleated Red Blood Cells % 0.0 Platelet Count 253 Potassium Level 3.5 Red Blood Count 4.04 L Red Cell Distribution Width 17.2 H Sodium Level 142 White Blood Count 6.1 Medications Medications Current Medications Ondansetron HCl (Zofran Inj) 4 mg Q6H PRN IV NAUSEA AND/OR VOMITING Last administered on 04/20/16 06:26; Admin Dose 4 MG; Start 04/15/16 at 18:30 Acetaminophen (Tylenol Tab) 650 mg Q6H PRN PO PAIN LEVEL 1-3 OR FEVER; Start at 18:30 Acetaminophen/ Hydrocodone Bitart ([place] (5/325)) 1 tab Q6H PRN PO MODERATE PAIN LEVEL 4-6; Start 04/15/16 at 18:30 Morphine Sulfate (morphine) 2 mg Q4H PRN IV SEVERE PAIN LEVEL 7-10 Last administered on 04/21/16 11:04; Admin Dose 2 MG; Start 04/15/16 at 18:30 Magnesium Hydroxide (Milk Of Mag) 30 ml DAILY PRN PO CONSTIPATION; Start at 18:30 Sodium Biphosphate/ Sodium Phosphate (Fleet Enema) 133 ml DAILY PRN [place] CONSTIPATION; Start 04/15/16 at 18:30 Famotidine (Pepcid Iv) 20 mg Q12 IV Last administered on 04/21/16 08:38; Admin Dose 20 MG; Start 04/15/16 at 21:00 Nitroglycerin (Nitroglycerin (Sl Tab) 0.4 Mg) 1 tab Q5M PRN SL ANGINA; Start at 18:30 Lorazepam (Ativan) 1 mg Q1H PRN IV CONTROL WITHDRAWAL SYMPTOMS Last administered on 04/20/16 01:54; Admin Dose 1 MG; Start 04/15/16 at 19:30 Mupirocin (Bactroban) 1 applic BID TOP Last administered on 04/21/16 14:21; Admin Dose 1 APPLIC; Start 04/17/16 at 21:00; Stop 04/27/16 at 20:59 Hydralazine HCl (Apresoline) 10 mg Q6H PRN IV SBP > 160 Last administered on 09:23; Admin Dose 10 MG; Start 04/18/16 at 00:30 Heparin Sodium (Porcine) (Heparin (5000 Units/0.5 ml)) 5,000 unit BID SC Last administered on 04/21/16 08:51; Admin Dose 5,000 UNIT; Start 04/18/16 at 21:00 IV Flush (NS 10 ml) 10 ml PRN PRN IV IV PROTOCOL; Start 04/18/16 at 16:00 Docusate Sodium (Colace) 100 mg BID PO Last administered on 04/21/16 08:38; Admin Dose 100 MG; Start 04/19/16 at 10:30 Furosemide 20 mg 20 mg DAILY IV Last administered on 04/21/16 08:38; Admin Dose 20 MG; Start 04/19/16 at 10:30; Stop 04/22/16 at 10:29 Levofloxacin/ Dextrose (Levaquin 500mg/ D5W 100 ml (Pmx)) 100 ml @ 100 mls/hr Q24H IVPB Last administered on 04/21/16 08:39; Admin Dose 100 MLS/HR; Start 04/19/16 at 11:00 MARLON WHEELER Apr 21, 2016 14:37
[2016-04-21] MEDS ORDERED: SOD CHLORIDE 0.9% 250 ML IV ONE (15:30)
[2016-04-21] MEDS ORDERED: LORAZEPAM 2 MG INJ IV PRN (22:30)
[2016-04-22 00:38] VITALS: BP 116/74; RESP 18
[2016-04-22] MEDS: morphine 2 MG INJ IV PRN ×4 (01:51→21:08)
[2016-04-22 04:59] VITALS: BP 110/65; RESP 18
[2016-04-22 06:47] VITALS: BP 112/68; RESP 16
--- NOTE | 2016-04-22 07:14 | SP ---
DATE OF PROCEDURE: REFERRING PHYSICIAN: . HISTORY OF PRESENT ILLNESS: The patient is 66-year-old found at [facility] unresponsive with the patient transferred to [facility] for more evaluation and treatment in which the patient had cocaine and morphine in her system. The patient admitted to ICU intubated, then ext ubated. Patient is improving and following simple commands with the patient transferred to [facility]. CURRENT MEDICATIONS: Include: 1. Pepcid 20 mg once a day. 2. Lorazepam 1 mg as needed. 3. Zofran 4 mg every 6 hours as needed. 4. [place] 5/325 mg every 6 hours as needed. 5. Morphine sulfate 2 mg every 4 hours as needed. 6. Colace 100 mg as needed. 7. Tylenol 650 mg once a day. PHYSICAL EXAMINATION: GENERAL: On exam today, the patient is alert, awake, oriented, following simple commands. Looks co nfused, but improvement than before. CRANIAL NERVES: Cranial nerve II: Pupils equal both sides, reactive to light. Cranial nerves III, IV and : Extraocular muscles intact. Cranial nerve V: Equal sensation to face. Cranial nerve VII: Symmetrical face. Cranial nerve VIII: Equal hearing bilaterally. Cranial nerves IX, X: Geri vates palate. Cranial nerve XI: Elevates shoulder 5/5. Cranial nerve XII: With straight tongue. MOTOR: Equal on both sides. Sensation equal for light touch and temperature. COORDINATION: [id number] test intact. HEART: Regular rate and rhythm. LUNGS: Equal breath sounds. ABDOMEN: Soft, relaxed, nondistended. No tenderness. ASSESSMENT AND PLAN: 1. The patient is a 66-year-old status post morphine and cocaine use. 2. Acute encephalopathy secondary to #1, which the patient is improving. 3. We counseled the patient about the importance to follow up with the medical advice and avoid any street drugs. 4. We will keep the patient under deep venous thrombosis prophylaxis as well as decubitus ulcer pro phylaxis. Again, thank you for asking me to see the patient with you. Dictated By: RAIZA HUFFMAN/VÍCTOR Conf#: [id number] DID#: [id number]
[2016-04-22 08:25] VITALS: BP 113/68; RESP 17
[2016-04-22 08:32] LABS: ADD SCAN DIFF NO
[2016-04-22 08:36] LABS: BASOPHIL # 0.1 10^3/ul (0.0-0.1); BASOPHILS % 1.1 % (0.0-2.0); EOSINOPHILS # 0.3 10^3/ul (0.0-0.5); EOSINOPHILS % 3.7 % (0.0-7.0); HEMOGLOBIN 10.3 g/dl (12.0-16.0); LYMPHOCYTES # 1.6 10^3/ul (0.8-2.9); LYMPHOCYTES % 19.8 % (15.0-51.0); MEAN CORPUSCULAR HEMOGLOBIN 24.3 pg (29.0-33.0); MEAN CORPUSCULAR HGB CONC 31.2 g/dl (32.0-37.0); MONOCYTE # 0.6 10^3/ul (0.3-0.9); MONOCYTES % 7.8 % (0.0-11.0); NEUTROPHIL # 5.3 10^3/ul (1.6-7.5); NEUTROPHILS % 66.3 % (39.0-77.0); PLATELET COUNT 255 10^3/UL (140-415); RED BLOOD COUNT 4.23 10^6/ul (4.20-5.40); RED CELL DISTRIBUTION WIDTH 17.3 % (11.5-14.5); WHITE BLOOD COUNT 7.9 10^3/ul (4.8-10.8)
[2016-04-22 08:41] LABS: POTASSIUM 3.7 mmol/L (3.5-5.1)
[2016-04-22 08:44] LABS: CREATININE 0.88 mg/dl (0.44-1.00)
[2016-04-22] MEDS: HEPARIN 5,000 UNIT/0.5 ML SYG SC SCH ×2 (09:05→21:02)
[2016-04-22] MEDS: FAMOTIDINE 20 MG INJ IV SCH (09:06)
[2016-04-22] MEDS: DOCUSATE SODIUM 100 MG CAP PO SCH ×2 (09:06→21:00)
[2016-04-22] MEDS: MUPIROCIN 2% 22 GM OINT TOP SCH ×2 (09:09→21:03)
[2016-04-22] MEDS: LEVOFLOXACIN 500MG/D5W (PMX) 100 ML IVPB SCH (11:20)
--- NOTE | 2016-04-22 12:45 | PN ---
DATE: 04/22/2016 SUBJECTIVE: Patient Zonia remains stable this morning, awake, alert, oriented, comfortable, denies shortness of breath, no chest pain or palpitations. She is requesting to go home. PHYSICAL EXAMINATION: VITAL SIGNS: Remain within normal limits, temperature 98, pulse 77, blood pressure 113/68, O2 satur ation 99% on 3 L nasal cannula. NECK: Supple. No JVD or lymphadenopathy. CARDIAC: S1, S2, no added sounds or murmurs. CHEST: Diminished air entry bilaterally. ABDOMEN: Soft, nontender. No guarding or rebound. EXTREMITIES: No cyanosis, clubbing, edema. NEUROLOGIC: Generalized weakness but no focal deficits. LABORATORY DATA: White count 7.9, hemoglobin 10.3, platelets 255. BUN 11, creatinine 0.88. IMPRESSION AND PLAN: 1. Status post polysubstance abuse. 2. Resolving encephalopathy. 3. Lower extremity weakness, improving. 4. History of respiratory failure, now improved. The patient is stable for discharge from pulmonar y standpoint, will need social work manager input prior to being discharged. Dictated By: SUSAN KATZ/VÍCTOR Conf#: [id number] DID#: [id number]
[2016-04-22] MEDS ORDERED: IPRA4AER INHALATION (13:00)
--- NOTE | 2016-04-22 13:03 | PDOCDIS ---
Discharge Instructions DIAGNOSIS Discharge Diagnosis: Acute encephalopathy CONDITION Patient Condition: Stable HOME CARE INSTRUCTIONS: Special Diet: Mechanical soft ACTIVITY: Activity Restrictions: Rest between Activity Activity Restrictions Comment: Fall precautions FOLLOW UP/APPOINTMENTS Appointments Followup with your primary doctor within the next 1-2 weeks. If you don't have one please let someone know, we can give you resources that may help you pick one. You may also call your insurance company to assign one to you. Review your medication list with your nurse before leaving and if you need new prescriptions please let your nurse know. I may have made changes to your home medications or given you new prescriptions , please let your primary doctor know as well. Stay compliant with your medications and report any side effects to your PCP or pharmacist. Return to the ER if you have any concerns and cannot reach your doctors or call your insurance company, they usually have a nurse that can help you. OTHER ORDERS: Other Orders: Please stop smoking. If you have already stopped, Good for you!!!. It is however an ongoing process. If you need help or resources, please let someone know before you leave. We are here to help you. It has been associated with a lot of disease processes and is not favorable for healing. Please stop using Cocaine!!!. it is also associated with a lot of adverse events including . MARLON WHEELER Apr 22, 2016 13:02
--- NOTE | 2016-04-22 13:36 | PN ---
Date/Time of Note Date/Time of Note DATE: 04/22/16 TIME: 13:33 Assessment/Plan VTE Prophylaxis VTE Prophylaxis Intervention: heparin Lines/Catheters IV Catheter Type (from Nrs): PICC Line Central line still needed: Yes Urinary Cath still in place: Yes Reason Cath still needed: other (indicate) (will d/c) Assessment/Plan Assessment/Plan 1. Altered mental status - resolved -pt came with temp of 106. Possible anticholinergic overdose. Utox was also positive for cocaine and opiates. now normothermic 2. Vent dependent Respiratory Failure: 2/2 altered mentation: resolved 3. Sepsis with lactic acidosis - resolved. 4. Bilateral pneumonia and bacteremia 5. Chronic hypochromic microcytic Anemia 2/2 iron deficiency 6. Prerenal Azotemia: resolved 7. Substance abuse s/p withdrawal 8. PreDM A1c: 6.5 9. Mild Rhabdomyolysis: resolved 10. MRSA nares PLAN: Patient still mildly unstable for d/c with hypoxia on room air CXR / gentle diuresis / bronchodilator therapy Continue Abx Complete IV Iron infusion Replace lytes / Serial labs / continue PT Plan for d/c once resp status improves Gastrointestinal prophylaxis - H2 nelly. Deep venous thrombosis prophylaxis - Heparin Subjective 24 Hr Interval Summary Free Text/Dictation Patient seen and examined. now ambulant to bathroom Still requiring supplemental O2 however Exam/Review of Systems Vital Signs Vitals Vital Signs Date Time Temp Pulse Resp B/P Pulse Ox O2 Delivery O2 Flow Rate FiO2 04/22/16 13:06 92 Room Air 04/22/16 08:25 98.4 77 17 113/68 04/22/16 02:42 3.0 04/19/16 16:37 30 Intake and Output 04/21/16 04/21/16 04/22/16 15:00 23:00 07:00 Intake Total 800 ml 200 ml Output Total 1000 ml Balance -200 ml 200 ml Exam Constitutional: alert, frail, No distress Psych: nl mood/affect Head: normocephalic Eyes: PERRL ENMT: mucosa pink and moist Respiratory: diminished breath sounds, wheezing (oc) Cardiovascular: regular rate and rhythm Gastrointestinal: bowel sounds, non-tender, soft Extremities: No edema Neurological: nl mental status Results Result Diagram: 04/22/16 0825 04/22/16 0825 Results 24 hrs Laboratory Tests Test 04/22/16 08:25 Anion Gap 15 Basophils # 0.1 Basophils % 1.1 Blood Urea Nitrogen 11 Calcium Level 10.0 Carbon Dioxide Level 26 Chloride Level 104 Creatinine 0.88 Eosinophils # 0.3 Eosinophils % 3.7 Glucose Level 118 Hematocrit 33.0 L Hemoglobin 10.3 L Lymphocytes # 1.6 Lymphocytes % 19.8 Mean Corpuscular Hemoglobin 24.3 L Mean Corpuscular Hemoglobin Concent 31.2 L Mean Corpuscular Volume 78.0 L Mean Platelet Volume 9.0 Monocytes # 0.6 Monocytes % 7.8 Neutrophils # 5.3 Neutrophils % 66.3 Nucleated Red Blood Cells # 0.0 Nucleated Red Blood Cells % 0.0 Platelet Count 255 Potassium Level 3.7 Red Blood Count 4.23 Red Cell Distribution Width 17.3 H Sodium Level 141 White Blood Count 7.9 # Medications Medications Current Medications Ondansetron HCl (Zofran Inj) 4 mg Q6H PRN IV NAUSEA AND/OR VOMITING Last administered on 04/20/16 06:26; Admin Dose 4 MG; Start 04/15/16 at 18:30 Acetaminophen (Tylenol Tab) 650 mg Q6H PRN PO PAIN LEVEL 1-3 OR FEVER; Start at 18:30 Acetaminophen/ Hydrocodone Bitart ([place] (5/325)) 1 tab Q6H PRN PO MODERATE PAIN LEVEL 4-6; Start 04/15/16 at 18:30 Morphine Sulfate (morphine) 2 mg Q4H PRN IV SEVERE PAIN LEVEL 7-10 Last administered on 04/22/16 11:30; Admin Dose 2 MG; Start 04/15/16 at 18:30 Magnesium Hydroxide (Milk Of Mag) 30 ml DAILY PRN PO CONSTIPATION; Start at 18:30 Sodium Biphosphate/ Sodium Phosphate (Fleet Enema) 133 ml DAILY PRN [place] CONSTIPATION; Start 04/15/16 at 18:30 Nitroglycerin (Nitroglycerin (Sl Tab) 0.4 Mg) 1 tab Q5M PRN SL ANGINA; Start at 18:30 Mupirocin (Bactroban) 1 applic BID TOP Last administered on 04/22/16 09:09; Admin Dose 1 APPLIC; Start 04/17/16 at 21:00; Stop 04/23/16 at 20:59 Hydralazine HCl (Apresoline) 10 mg Q6H PRN IV SBP > 160 Last administered on 09:23; Admin Dose 10 MG; Start 04/18/16 at 00:30 Heparin Sodium (Porcine) (Heparin (5000 Units/0.5 ml)) 5,000 unit BID SC Last administered on 04/22/16 09:05; Admin Dose 5,000 UNIT; Start 04/18/16 at 21:00 IV Flush (NS 10 ml) 10 ml PRN PRN IV IV PROTOCOL; Start 04/18/16 at 16:00 Docusate Sodium (Colace) 100 mg BID PO Last administered on 04/22/16 09:06; Admin Dose 100 MG; Start 04/19/16 at 10:30 Lorazepam (Ativan) 1 mg Q8H PRN IV CONTROL WITHDRAWAL SYMPTOMS; Start 04/21/16 at 22:30 Levofloxacin (Levaquin) 500 mg DAILY@06 PO ; Start 04/23/16 at 06:00 Famotidine (Pepcid) 20 mg BID PO ; Start 04/22/16 at 21:00 MARLON WHEELER Apr 22, 2016 13:35
[2016-04-22] MEDS: ALBUTEROL/IPRATROPIUM (NEB) 3 ML AMP HHN SCH ×3 (14:06→21:00)
--- NOTE | 2016-04-22 14:22 | RADRPT ---
PROCEDURE: XR Chest. CLINICAL INDICATION: Hypoxia TECHNIQUE: Chest PA and lateral COMPARISON: 04/19/2016 FINDINGS: Left arm PICC line with tip in at the SVC / RA junction The mediastinal structures are unremarkable. There is calcification of the thoracic aorta (consiste nt with atherosclerosis). The heart is normal in size and configuration. The pulmonary vascularity is normal. The lung higuera are unremarkable. No consolidation is identified. The pleural spaces are unremarkable. There are senescent changes of the axial skeleton. There is a retrocardiac hiatal hernia. IMPRESSION: Calcification of the thoracic aorta (consistent with atherosclerosis). No evidence for active cardiopulmonary disease. RPTAT: HGDB .Pk Lowry MD, Date Time Electronically viewed and signed by .Pk Lowry MD, on 04/22/2016 14:22 .B/
[2016-04-22] MEDS ORDERED: ALTEPLASE (CATHFLO) 2 MG INJ CATHETER ONE (15:00)
[2016-04-22] MEDS: FUROSEMIDE 20 MG INJ IV SCH (15:34)
[2016-04-22 20:46] VITALS: BP 107/63; RESP 18
[2016-04-22] MEDS: FAMOTIDINE 20 MG TAB PO SCH (21:00)
[2016-04-23] MEDS: ALBUTEROL/IPRATROPIUM (NEB) 3 ML AMP HHN SCH ×5 (01:00→16:27)
[2016-04-23] MEDS ORDERED: LEVOFLOXACIN 500 MG TAB PO SCH (06:00)
[2016-04-23 08:19] VITALS: BP 111/68; RESP 14
[2016-04-23] MEDS: MUPIROCIN 2% 22 GM OINT TOP SCH (09:12)
[2016-04-23] MEDS: FUROSEMIDE 20 MG INJ IV SCH (09:14)
[2016-04-23] MEDS: FAMOTIDINE 20 MG TAB PO SCH (09:15)
[2016-04-23] MEDS: DOCUSATE SODIUM 100 MG CAP PO SCH (09:15)
[2016-04-23] MEDS: HEPARIN 5,000 UNIT/0.5 ML SYG SC SCH (09:16)
[2016-04-23 09:49] LABS: ADD SCAN DIFF NO
[2016-04-23 09:53] LABS: BASOPHIL # 0.1 10^3/ul (0.0-0.1); BASOPHILS % 0.9 % (0.0-2.0); EOSINOPHILS # 0.1 10^3/ul (0.0-0.5); EOSINOPHILS % 2.6 % (0.0-7.0); HEMATOCRIT 31.9 % (37.0-47.0); HEMOGLOBIN 9.7 g/dl (12.0-16.0); LYMPHOCYTES # 1.3 10^3/ul (0.8-2.9); LYMPHOCYTES % 24.1 % (15.0-51.0); MEAN CORPUSCULAR HEMOGLOBIN 23.8 pg (29.0-33.0); MEAN CORPUSCULAR HGB CONC 30.4 g/dl (32.0-37.0); MEAN CORPUSCULAR VOLUME 78.4 fl (82.0-101.0); MEAN PLATELET VOLUME 9.2 fl (7.4-10.4); MONOCYTE # 0.4 10^3/ul (0.3-0.9); MONOCYTES % 7.1 % (0.0-11.0); NEUTROPHIL # 3.5 10^3/ul (1.6-7.5); NEUTROPHILS % 64.2 % (39.0-77.0); PLATELET COUNT 258 10^3/UL (140-415); RED BLOOD COUNT 4.07 10^6/ul (4.20-5.40); WHITE BLOOD COUNT 5.5 10^3/ul (4.8-10.8)
[2016-04-23 10:01] LABS: POTASSIUM 3.5 mmol/L (3.5-5.1)
[2016-04-23 10:03] LABS: CREATININE 0.78 mg/dl (0.44-1.00)
[2016-04-23 10:04] LABS: CALCIUM 9.6 mg/dl (8.4-10.2)
[2016-04-23] MEDS ORDERED: ADV25050 INHALATION (12:07)
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
== END 2016-04-23 16:39 | disposition home health service (06) | DRG 917 ==
LOC: E/R 16:39 → ICU 17:52 → EDBD 17:52 → TEL 04-21 02:50 → PP2 04-22 06:35
PROVIDERS: ADMIT Hospitalist; ATTEND Hospitalist
PROC: 5A1945Z Respiratory Ventilation, 24-96 Consecutive Hours (ICD-10-PCS; principal; 2016-04-15)
PROC: 0BH17EZ Insertion of Endotracheal Airway into Trachea, Via Natural or Artificial Opening (ICD-10-PCS; 2016-04-15)
PROC: 02HV33Z Insertion of Infusion Device into Superior Vena Cava, Percutaneous Approach (ICD-10-PCS; 2016-04-15)
DX: T40.5X1A Poisoning by cocaine, accidental (unintentional), initial encounter (principal); J96.90 Respiratory failure, unspecified, unspecified whether with hypoxia or hypercapnia; A41.9 Sepsis, unspecified organism; G92 Toxic encephalopathy; J18.9 Pneumonia, unspecified organism; E87.2 Acidosis; M62.82 Rhabdomyolysis; F11.23 Opioid dependence with withdrawal; T68.XXXA Hypothermia, initial encounter; W18.30XA Fall on same level, unspecified, initial encounter; Y92.480 Sidewalk as the place of occurrence of the external cause; D63.8 Anemia in other chronic diseases classified elsewhere; D50.8 Other iron deficiency anemias; D50.9 Iron deficiency anemia, unspecified; R50.2 Drug induced fever; R79.89 Other specified abnormal findings of blood chemistry; R73.03 Prediabetes; F14.90 Cocaine use, unspecified, uncomplicated; N28.9 Disorder of kidney and ureter, unspecified; Z22.322 Carrier or suspected carrier of Methicillin resistant Staphylococcus aureus
CPT/HCPCS: 31500; 36415; 36569; 36600; 70450; 71010; 71020; 74000; 76937; 80048; 80053; 80061; 80202; 80306; 80307; 81003; 82140; 82270; 82550; 82553; 82728; 82803; 83036; 83540; 83605; 83615; 83735; 84100; 84439; 84443; 84484; 85025; 85610; 85730; 86703; 87040; 87081; 87086; 92526; 92610; 93005; 93306; 94002; 94003; 94640; 94664; 94770; 95819; 96372; 96374; 96375; 97110; 97162; 97530; J1940; C1769; J0330; J0360; J0692; J1170; J1630; J1650; J1956; J2060; J2270; J2405; J2916; J2997; J3370; J3475; J3480; J7030; J7040